=== PATIENT | female | born 1950 | race Caucasian/White ===

== ENCOUNTER 2017-11-10 01:29 | Emergency (ER) | payer OTHER, MEDICAID ==
[~2017-11-10] VITALS: Ht 172.7 cm; Wt 62.6 kg
[~2017-11-10 01:29] MED LIST: ALBU2.5V7 INH; ASPI81TA2 PO; CAT.2 PO; CEPH250C PO; COR25 PO; DIPH25CA83 PO; DOCU-144 PO; HYDR-4039 PO; HYDR-4100 PO; LIP40 PO; NEU300 PO; NOR10 PO; ONDA4TAB22 PO; PARO20TA51 PO; PRO40 PO; VITA1TAB25 PO; ZOLP5TAB2 PO; [UNRECOGNIZED DRUG - CODE] PO
[2017-11-10 01:30] VITALS: BP_SYST 140
[2017-11-10] MEDS ORDERED: PHYTONADIONE 10 MG/ML AMP IM ONE (05:45)
[2017-11-10] MEDS ORDERED: traMADol HCL HCL 50 MG TABLET (ULTRAM) PO ONE (05:45)
[2017-11-10 06:33] VITALS: BP_SYST 155
== END 2017-11-10 06:33 | disposition home or self-care (01) ==
LOC: SED 01:29
DX: D68.9 Coagulation defect, unspecified (principal); R51 Headache; J45.909 Unspecified asthma, uncomplicated; K21.9 Gastro-esophageal reflux disease without esophagitis; I12.0 Hypertensive chronic kidney disease with stage 5 chronic kidney disease or end stage renal disease; E11.22 Type 2 diabetes mellitus with diabetic chronic kidney disease; N18.6 End stage renal disease; Z99.2 Dependence on renal dialysis; Z88.0 Allergy status to penicillin; Z88.2 Allergy status to sulfonamides; Z79.82 Long term (current) use of aspirin; Z79.899 Other long term (current) drug therapy
CPT/HCPCS: 96372; 99283; J3430

== ENCOUNTER 2017-11-10 08:01 | Emergency (ER) | payer OTHER, MEDICAID ==
[~2017-11-10] VITALS: Ht 172.7 cm; Wt 62.6 kg
[2017-11-10 08:01] VITALS: BP_SYST 138
[2017-11-10 08:56] LABS: BASOPHILS # (AUTO) 0.1 K/uL (0.0-0.2); BASOPHILS % (AUTO) 0.9 % (0.0-2.0); EOSINOPHILS # (AUTO) 0.9 K/uL (0.0-0.4); EOSINOPHILS % (AUTO) 14.4 % (0.0-4.0); HEMATOCRIT 31.7 % (36-48); HEMOGLOBIN 10.1 g/dL (12.0-16.0); LYMPHOCYTES # (AUTO) 0.7 K/uL (1.0-5.5); LYMPHOCYTES % (AUTO) 11.8 % (20.5-51.5); MEAN CORPUSCULAR HEMOGLOBIN 28 pg (27-31); MEAN CORPUSCULAR HGB CONC 32 % (32-36); MEAN CORPUSCULAR VOLUME 89 fL (79.0-98.0); MONOCYTES # (AUTO) 0.7 K/uL (0.0-1.0); MONOCYTES % (AUTO) 11.8 % (1.7-9.3); NEUTROPHILS # (AUTO) 3.7 K/uL (1.8-7.7); NEUTROPHILS % (AUTO) 61.1 % (40.0-70.0); PLATELET COUNT (AUTO) 214 K/uL (130-430); RED BLOOD CELL COUNT(AUTO) 3.57 MIL/uL (4.2-6.2); RED CELL DISTRIBUTION WIDTH 19.8 % (9.0-15.0); WHITE BLOOD COUNT (AUTO) 6.1 K/uL (4.8-10.8)
[2017-11-10 09:05] LABS: CALCIUM 8.8 mg/dL (8.4-11.0); CREATININE 4.59 mg/dL (0.55-1.30); POTASSIUM 4.6 mmol/L (3.5-5.1)
[2017-11-10 09:10] LABS: ALBUMIN 2.6 g/dL (3.4-4.8); TOTAL BILIRUBIN 0.3 mg/dL (0.0-1.0)
[2017-11-10 09:11] LABS: PROTHROMBIN TIME 10.4 SECS (9.5-12.5)
[2017-11-10 11:30] VITALS: BP_SYST 140
== END 2017-11-10 11:30 | disposition home or self-care (01) ==
LOC: SED 08:01
DX: T82.838A Hemorrhage due to vascular prosthetic devices, implants and grafts, initial encounter (principal); I12.0 Hypertensive chronic kidney disease with stage 5 chronic kidney disease or end stage renal disease; E11.22 Type 2 diabetes mellitus with diabetic chronic kidney disease; N18.6 End stage renal disease; J44.9 Chronic obstructive pulmonary disease, unspecified; F17.200 Nicotine dependence, unspecified, uncomplicated; K21.9 Gastro-esophageal reflux disease without esophagitis; Z99.2 Dependence on renal dialysis; Z88.0 Allergy status to penicillin; Z88.2 Allergy status to sulfonamides; Z79.82 Long term (current) use of aspirin; Z79.899 Other long term (current) drug therapy; Z98.890 Other specified postprocedural states
CPT/HCPCS: 36415; 80053; 85025; 85610-TC; 85730-TC; 99284

== ENCOUNTER 2017-11-28 09:19 | Emergency (ER) | payer OTHER, MEDICAID ==
[~2017-11-28] VITALS: Ht 172.7 cm; Wt 62.6 kg
[2017-11-28 09:19] VITALS: BP_SYST 160
[2017-11-28 10:54] VITALS: BP_SYST 188
== END 2017-11-28 10:54 | disposition home or self-care (01) ==
LOC: SED 09:19
DX: S41.132A Puncture wound without foreign body of left upper arm, initial encounter (principal); J44.9 Chronic obstructive pulmonary disease, unspecified; K21.9 Gastro-esophageal reflux disease without esophagitis; F17.210 Nicotine dependence, cigarettes, uncomplicated; I12.9 Hypertensive chronic kidney disease with stage 1 through stage 4 chronic kidney disease, or unspecified chronic kidney disease; E11.22 Type 2 diabetes mellitus with diabetic chronic kidney disease; N18.9 Chronic kidney disease, unspecified; Z99.2 Dependence on renal dialysis; Z86.79 Personal history of other diseases of the circulatory system; Z88.2 Allergy status to sulfonamides; Z88.0 Allergy status to penicillin; Z79.82 Long term (current) use of aspirin; X58.XXXA Exposure to other specified factors, initial encounter; Y93.89 Activity, other specified; Y92.89 Other specified places as the place of occurrence of the external cause; Y99.8 Other external cause status
CPT/HCPCS: 99283; J7030

== ENCOUNTER 2018-03-16 13:44 | Inpatient (IN) | payer OTHER, MEDICAID ==
[~2018-03-16] VITALS: Ht 172.7 cm; Wt 61.7 kg
[2018-03-16 13:54] VITALS: BP_SYST 137
[2018-03-16 14:25] LABS: BASOPHILS % (AUTO) 0.6 % (0.0-2.0); EOSINOPHILS # (AUTO) 0.9 K/uL (0.0-0.4); EOSINOPHILS % (AUTO) 11.3 % (0.0-4.0); LYMPHOCYTES % (AUTO) 12.7 % (20.5-51.5); MEAN CORPUSCULAR HEMOGLOBIN 28 pg (27-31); MEAN CORPUSCULAR HGB CONC 32 % (32-36); MEAN CORPUSCULAR VOLUME 87 fL (79.0-98.0); MONOCYTES # (AUTO) 0.6 K/uL (0.0-1.0); MONOCYTES % (AUTO) 7.8 % (1.7-9.3); NEUTROPHILS # (AUTO) 5.5 K/uL (1.8-7.7); PLATELET COUNT (AUTO) 244 K/uL (130-430); RED BLOOD CELL COUNT(AUTO) 2.51 MIL/uL (4.2-6.2); RED CELL DISTRIBUTION WIDTH 21.6 % (9.0-15.0)
[2018-03-16 14:33] LABS: CALCIUM 8.3 mg/dL (8.4-11.0); CREATININE 5.1 mg/dL (0.55-1.30); POTASSIUM 5.1 mmol/L (3.5-5.1)
[2018-03-16 14:36] LABS: HEMATOCRIT 21.9 % (36-48)
[2018-03-16 14:38] LABS: ALBUMIN 2.3 g/dL (3.4-4.8); TOTAL BILIRUBIN 0.4 mg/dL (0.0-1.0)
[2018-03-16 14:58] LABS: INR 1.2 (0.8-1.2); PROTHROMBIN TIME 12.3 SECS (9.5-12.5)
[2018-03-16 15:13] LABS: NEUTROPHILS % (AUTO) 67.6 % (40.0-70.0)
[2018-03-16] MEDS ORDERED: DIPHENHYDRAMINE HCL 25 MG CAPSULE PO ONE (15:45)
[2018-03-16] MEDS ORDERED: methylPREDNISolone SOD SUCC/PF 62.5 MG/ML VIAL IVP ONE (16:15)
[2018-03-16 16:48] VITALS: BP_SYST 172
[2018-03-16] MEDS ORDERED: HYDROcodone/ACETAMIN 10-325 MG TAB PO PRN (19:00)
[2018-03-16] MEDS ORDERED: ALBUTEROL SULFATE 0.083% 2.5 MG/3 ML VIAL.NEB INH PRN (19:00)
[2018-03-16] MEDS ORDERED: ONDANSETRON 4 MG ODT TAB PO PRN (19:00)
[2018-03-16] MEDS ORDERED: MILK OF MAGNESIA 30 ML UDC PO PRN (19:00)
[2018-03-16 19:25] VITALS: BP_SYST 172
[2018-03-16 20:00] VITALS: BP_SYST 172
[2018-03-16] MEDS: ATORVASTATIN 20 MG TABLET PO SCH (22:50)
[2018-03-16] MEDS: CARVEDILOL 25 MG TABLET (COREG) PO SCH (22:51)
[2018-03-16] MEDS: DOCUSATE SODIUM 100 MG CAPSULE PO SCH (22:51)
[2018-03-16] MEDS: hydrALAZINE HCL 25 MG TABLET PO SCH (22:52)
[2018-03-16] MEDS: GABAPENTIN 300 MG CAPSULE PO SCH (22:53)
[2018-03-16] MEDS: INSULIN REGULAR, HUMAN 100 UNITS/ML, 10 ML VIAL (novoLIN R) SUBCUT PRN (23:00)
[2018-03-17] MEDS: ZOLPIDEM TARTRATE 5 MG TABLET PO PRN (03:00)
[2018-03-17] MEDS: cloNIDine HCL 0.2 MG TABLET PO PRN ×2 (03:00→23:43)
[2018-03-17] MEDS: DIPHENHYDRAMINE INJ 50 MG/ML VIAL IVP PRN ×2 (03:01→14:34)
[2018-03-17 03:12] VITALS: BP_SYST 181
[2018-03-17] MEDS: INSULIN REGULAR, HUMAN 100 UNITS/ML, 10 ML VIAL (novoLIN R) SUBCUT PRN ×4 (06:14→21:20)
[2018-03-17 07:37] LABS: EOSINOPHILS % (AUTO) 0.1 % (0.0-4.0); HEMATOCRIT 29.2 % (36-48); HEMOGLOBIN 9.5 g/dL (12.0-16.0); LYMPHOCYTES # (AUTO) 0.4 K/uL (1.0-5.5); LYMPHOCYTES % (AUTO) 10.6 % (20.5-51.5); MEAN CORPUSCULAR HEMOGLOBIN 28 pg (27-31); MEAN CORPUSCULAR HGB CONC 33 % (32-36); MEAN CORPUSCULAR VOLUME 87 fL (79.0-98.0); MONOCYTES # (AUTO) 0.1 K/uL (0.0-1.0); MONOCYTES % (AUTO) 3.3 % (1.7-9.3); NEUTROPHILS # (AUTO) 3.5 K/uL (1.8-7.7); PLATELET COUNT (AUTO) 203 K/uL (130-430); RED BLOOD CELL COUNT(AUTO) 3.37 MIL/uL (4.2-6.2); RED CELL DISTRIBUTION WIDTH 18.2 % (9.0-15.0)
[2018-03-17 08:01] LABS: CALCIUM 8.1 mg/dL (8.4-11.0); CREATININE 5.69 mg/dL (0.55-1.30); POTASSIUM 5.7 mmol/L (3.5-5.1)
[2018-03-17 08:26] LABS: TOTAL IRON BIND. CAPACITY 153 ug/dL (250-450)
[2018-03-17] MEDS: DOCUSATE SODIUM 100 MG CAPSULE PO SCH ×2 (09:00→21:00)
[2018-03-17] MEDS: CARVEDILOL 25 MG TABLET (COREG) PO SCH ×2 (09:00→21:26)
[2018-03-17] MEDS: PARoxetine HCL 20 MG TABLET PO SCH (09:00)
[2018-03-17] MEDS: ASPIRIN 81 MG TAB.CHEW PO SCH (09:00)
[2018-03-17] MEDS: VITAMIN B COMPLEX WITH C TAB/CAP PO SCH (09:00)
[2018-03-17] MEDS: amLODIPine BESYLATE 10 MG TABLET PO SCH (09:00)
[2018-03-17] MEDS: hydrALAZINE HCL 25 MG TABLET PO SCH ×3 (09:00→21:25)
[2018-03-17] MEDS: PANTOPRAZOLE SODIUM 40 MG TAB PO SCH (09:00)
[2018-03-17 09:24] VITALS: BP_SYST 171
[2018-03-17] MEDS ORDERED: TUBERCULIN,PURIF.PROT.DERIV. 0.1 ML SYR ID ONE (13:00)
[2018-03-17 14:39] VITALS: BP_SYST 171
[2018-03-17] MEDS ORDERED: EPOETIN ALFA 10,000 UNITS/ML VIAL SUBCUT SCH (17:00)
[2018-03-17 17:06] VITALS: BP_SYST 177
[2018-03-17] MEDS ORDERED: MILK OF MAGNESIA 30 ML UDC PO PRN (19:45)
[2018-03-17 19:55] VITALS: BP_SYST 178
[2018-03-17] MEDS: ATORVASTATIN 20 MG TABLET PO SCH (21:25)
[2018-03-17] MEDS: GABAPENTIN 300 MG CAPSULE PO SCH (21:26)
[2018-03-17 23:40] VITALS: BP_SYST 171
[2018-03-18 00:23] VITALS: BP_SYST 171
[2018-03-18] MEDS: DIPHENHYDRAMINE INJ 50 MG/ML VIAL IVP PRN ×2 (01:36→14:21)
[2018-03-18] MEDS: ZOLPIDEM TARTRATE 5 MG TABLET PO PRN (01:36)
[2018-03-18] MEDS: cloNIDine HCL 0.2 MG TABLET PO PRN ×2 (06:46→13:37)
[2018-03-18 06:47] LABS: HEMATOCRIT 28.1 % (36-48); HEMOGLOBIN 9.2 g/dL (12.0-16.0); MEAN CORPUSCULAR HEMOGLOBIN 28 pg (27-31); MEAN CORPUSCULAR HGB CONC 33 % (32-36); MEAN CORPUSCULAR VOLUME 86 fL (79.0-98.0); PLATELET COUNT (AUTO) 219 K/uL (130-430); RED BLOOD CELL COUNT(AUTO) 3.26 MIL/uL (4.2-6.2); RED CELL DISTRIBUTION WIDTH 18.7 % (9.0-15.0); WHITE BLOOD COUNT (AUTO) 7.3 K/uL (4.8-10.8)
[2018-03-18] MEDS: INSULIN REGULAR, HUMAN 100 UNITS/ML, 10 ML VIAL (novoLIN R) SUBCUT PRN ×2 (06:48→11:30)
[2018-03-18 06:49] VITALS: BP_SYST 163
[2018-03-18 07:09] LABS: ALBUMIN 2.2 g/dL (3.4-4.8); CALCIUM 7.5 mg/dL (8.4-11.0); CREATININE 4.86 mg/dL (0.55-1.30); POTASSIUM 4.7 mmol/L (3.5-5.1); TOTAL BILIRUBIN 0.4 mg/dL (0.0-1.0)
[2018-03-18 07:48] LABS: TOTAL IRON BIND. CAPACITY 164 ug/dL (250-450)
[2018-03-18] MEDS: hydrALAZINE HCL 25 MG TABLET PO SCH ×2 (08:10→14:21)
[2018-03-18] MEDS: ASPIRIN 81 MG TAB.CHEW PO SCH (08:11)
[2018-03-18] MEDS: PARoxetine HCL 20 MG TABLET PO SCH (08:11)
[2018-03-18] MEDS: PANTOPRAZOLE SODIUM 40 MG TAB PO SCH (08:11)
[2018-03-18] MEDS: DOCUSATE SODIUM 100 MG CAPSULE PO SCH (08:11)
[2018-03-18] MEDS: CARVEDILOL 25 MG TABLET (COREG) PO SCH (08:11)
[2018-03-18] MEDS: amLODIPine BESYLATE 10 MG TABLET PO SCH (08:12)
[2018-03-18] MEDS: VITAMIN B COMPLEX WITH C TAB/CAP PO SCH (08:12)
[2018-03-18 08:21] VITALS: BP_SYST 168
[2018-03-18] MEDS ORDERED: buPROPion HCL 100 MG TABLET PO SCH (09:00)
[2018-03-18 12:10] LABS: FOLATE (FOLIC ACID) 3.7 ng/mL (>3.0)
[2018-03-18 12:14] VITALS: BP_SYST 163
[2018-03-18 13:44] VITALS: BP_SYST 162
[2018-03-19 10:22] LABS: HEPATITIS A AB, IgM Negative (Negative); HEPATITIS B CORE AB, IgM Negative (Negative); HEPATITIS B SURFACE AG Negative (Negative)
== END 2018-03-18 15:45 | DRG 811 ==
LOC: SED 13:44 → SMU 16:08
PROVIDERS: ADMIT Family Medicine; ATTEND Family Medicine
PROC: 30233N1 Transfusion of Nonautologous Red Blood Cells into Peripheral Vein, Percutaneous Approach (ICD-10-PCS; principal; 2018-03-16)
PROC: 5A1D70Z Performance of Urinary Filtration, Intermittent, Less than 6 Hours Per Day (ICD-10-PCS; 2018-03-17)
DX: D64.9 Anemia, unspecified (principal); E43 Unspecified severe protein-calorie malnutrition; N18.6 End stage renal disease; I12.0 Hypertensive chronic kidney disease with stage 5 chronic kidney disease or end stage renal disease; E87.1 Hypo-osmolality and hyponatremia; L29.9 Pruritus, unspecified; E11.51 Type 2 diabetes mellitus with diabetic peripheral angiopathy without gangrene; E11.22 Type 2 diabetes mellitus with diabetic chronic kidney disease; J44.9 Chronic obstructive pulmonary disease, unspecified; K21.9 Gastro-esophageal reflux disease without esophagitis; F17.210 Nicotine dependence, cigarettes, uncomplicated; R58 Hemorrhage, not elsewhere classified; S51.812A Laceration without foreign body of left forearm, initial encounter; S51.811A Laceration without foreign body of right forearm, initial encounter; X58.XXXA Exposure to other specified factors, initial encounter; Z99.2 Dependence on renal dialysis; Z88.0 Allergy status to penicillin; Z88.2 Allergy status to sulfonamides; Z79.899 Other long term (current) drug therapy; Z79.82 Long term (current) use of aspirin; Z90.710 Acquired absence of both cervix and uterus; Z89.511 Acquired absence of right leg below knee; Y93.89 Activity, other specified; Y92.89 Other specified places as the place of occurrence of the external cause; Y99.8 Other external cause status; Z89.512 Acquired absence of left leg below knee; Z68.20 Body mass index [BMI] 20.0-20.9, adult
CPT/HCPCS: 36415; 80048; 80053; 80074; 82607; 82728; 82746; 82962; 83540-TC; 83550-TC; 83970; 85025; 85610-TC; 85730-TC; 86580; 86886; 86900; 86901; 86920; 87081; 90935; 96374; 97110-GP; 99285; J0885; J1200; J1815; J2930; J7050; P9021; Q0163

== ENCOUNTER 2018-03-22 03:52 | Emergency (ER) | payer OTHER, MEDICAID ==
[~2018-03-22] VITALS: Ht 172.7 cm; Wt 62.6 kg
[2018-03-22 04:07] VITALS: BP_SYST 198
[2018-03-22 07:41] VITALS: BP_SYST 145
== END 2018-03-22 07:41 | disposition home or self-care (01) ==
LOC: SED 03:52
DX: S41.101D Unspecified open wound of right upper arm, subsequent encounter (principal); I12.0 Hypertensive chronic kidney disease with stage 5 chronic kidney disease or end stage renal disease; E11.22 Type 2 diabetes mellitus with diabetic chronic kidney disease; N18.6 End stage renal disease; E11.40 Type 2 diabetes mellitus with diabetic neuropathy, unspecified; F41.9 Anxiety disorder, unspecified; F17.200 Nicotine dependence, unspecified, uncomplicated; Z99.2 Dependence on renal dialysis; Z88.0 Allergy status to penicillin; Z88.2 Allergy status to sulfonamides; Z89.511 Acquired absence of right leg below knee; X58.XXXD Exposure to other specified factors, subsequent encounter
CPT/HCPCS: 99283

== ENCOUNTER 2018-04-02 14:57 | Inpatient (IN) | payer OTHER, MEDICAID ==
[~2018-04-02] VITALS: Ht 172.7 cm; Wt 70.8 kg
--- NOTE | 2018-04-02 20:12 | NUR ---
Admission Note Received patient as a direct admit with diagnosis of ANEMIA. Patient is awake, alert, and oriented x4. Initial Plan of Care discussed-patient verbalized understanding. Oriented to room, call light, pain management and safety. Bed is down, locked, side rails up x2, call light within reach. Bed alarm on. Will continue to monitor.
[2018-04-02] MEDS ORDERED: ZOLPIDEM TARTRATE 5 MG TABLET PO SCH (20:15)
[2018-04-02] MEDS ORDERED: ONDANSETRON 4 MG ODT TAB PO SCH (20:15)
[2018-04-02] MEDS ORDERED: ACETAMINOPHEN 325 MG TABLET PO PRN (20:30)
[2018-04-02] MEDS ORDERED: INSULIN REGULAR, HUMAN 100 UNITS/ML, 10 ML VIAL (novoLIN R) SUBCUT PRN (20:30)
[2018-04-02] MEDS ORDERED: HYDROcodone/ACETAMIN 5-325 MG TAB (NORCO/ VICODIN) PO SCH (20:30)
[2018-04-02] MEDS ORDERED: cloNIDine HCL 0.2 MG TABLET PO PRN (20:30)
[2018-04-02] MEDS ORDERED: POLY15DR56 OP (20:40)
[2018-04-02] MEDS ORDERED: CETI10CA PO (20:40)
[2018-04-02] MEDS ORDERED: ACET-2165 PO (20:40)
[2018-04-02] MEDS ORDERED: HYDR-1189 PO (20:40)
[2018-04-02] MEDS ORDERED: RIVA10TA PO (20:40)
[2018-04-02] MEDS ORDERED: FERR210T PO (20:40)
[2018-04-02] MEDS ORDERED: LevALBUTEROL HCL 1.25 MG/0.5 ML *CONC.* VIAL.NEB (XOPENEX CONC.) INH PRN (20:45)
[2018-04-02 20:48] VITALS: BP_SYST 167
[2018-04-02] MEDS ORDERED: NON-FORMULARY MEDICATION (Ferric Citrate 210 MG) PO SCH (21:00)
[2018-04-02] MEDS: TEARS ARTIFICIAL 15 ML DROPS OP SCH (21:00)
[2018-04-02] MEDS ORDERED: LORATADINE 10 MG TABLET PO SCH (21:00)
[2018-04-02] MEDS ORDERED: ATORVASTATIN 20 MG TABLET PO SCH (21:00)
[2018-04-02] MEDS: buPROPion HCL 100 MG TABLET PO SCH (21:00)
--- NOTE | 2018-04-02 22:31 | NUR ---
Rounds/Verified with lab order was in correctly and still waiting on blood Patient is eating in bed. No s/s of distress. Denies needs. Called lab multiple times to verify order, lab stated it was correct and that it still was not ready at this time. Bed is down, locked, side rails up x2, call light within reach. bed alarm on. Will continue to monitor.
[2018-04-02] MEDS: hydrALAZINE HCL 25 MG TABLET PO SCH (22:53)
[2018-04-02] MEDS: CARVEDILOL 25 MG TABLET (COREG) PO SCH (22:54)
[2018-04-02] MEDS: GABAPENTIN 300 MG CAPSULE PO SCH (22:55)
[2018-04-03] VITALS (7 sets, daily range): BP systolic 134–181
--- NOTE | 2018-04-03 00:42 | NUR ---
Rounds/Still waiting on blood Patient is resting in bed at this time. No s/s of respiratory distress. Breathing is even and unlabored. Called lab multiple times for blood, blood is not ready. Bed is down, locked, side rails up x2, call light within reach, bed alarm on. Will continue to monitor.
--- NOTE | 2018-04-03 01:25 | NUR ---
Blood transfusion Blood transfusion started at this time. Patient instructed on adverse reactions and to notify nurse if patient experiences any symptoms, patient verbalizes understanding. No adverse reactions noted. Bed is down, locked, side rails up x2, call light within reach, bed alarm on. Will continue to monitor.
--- NOTE | 2018-04-03 02:37 | NUR ---
Rounds Patient is resting in bed at this time. Breathing is even and unlabored. Blood is infusing well, no adverse reactions noted. Bed is down, locked, side rails up x2, call light within reach, bed alarm on. Will continue to monitor.
--- NOTE | 2018-04-03 04:32 | NUR ---
Rounds Patient is resting in bed with eyes closed. No s/s of distress noted Blood is infusing well, no adverse reactions noted. Bed is down, locked, side rails up x2, call light within reach, bed alarm on. Will continue to monitor.
--- NOTE | 2018-04-03 04:56 | NUR ---
PAGED I PAGED DR. KRAMER @ [phone] KRAMER @ [phone] SECOND CALL THIS TIME
--- NOTE | 2018-04-03 04:56 | NUR ---
Paged Dr. Jeffers Paged Dr. Jeffers for orders.
--- NOTE | 2018-04-03 05:00 | NUR ---
Blood transfusion completed Blood transfusion completed. No adverse reactions noted throughout transfusion. Bed is down, locked, side rails up x2, call light within reach, bed alarm on. Will continue to monitor.
--- NOTE | 2018-04-03 05:26 | NUR ---
Paged Dr. Jeffers Second page to Dr. Jeffers.
--- NOTE | 2018-04-03 05:36 | NUR ---
PAGED I PAGED DR. KRAMER @ [phone] I SPOKE WITH STEFFANIE KRAMER CALLED BACK @ [phone]
--- NOTE | 2018-04-03 05:44 | NUR ---
Spoke to Dr. Jeffers Spoke to Dr. Jeffers and notified MD of patients BP of 171/57. MD ordered to give clonidine 0.3mg now once and then to continue to second transfusion afterwards. MD notified of patient's oxygen level decreasing, order received for oxygen via nasal cannula as needed. Orders noted and carried out.
[2018-04-03] MEDS ORDERED: cloNIDine HCL 0.1 MG TABLET PO ONE (05:45)
--- NOTE | 2018-04-03 06:04 | NUR ---
Went to lab Went to lab. Unable to retrieve blood from them at this time due to system issue. Lab will call nurse when it is fixed and ready to be picked up.
[2018-04-03] MEDS: LevALBUTEROL HCL 1.25 MG/0.5 ML *CONC.* VIAL.NEB (XOPENEX CONC.) INH SCH ×2 (07:31→15:00)
[2018-04-03 07:52] LABS: BASOPHILS % (AUTO) 0.4 % (0.0-2.0); EOSINOPHILS # (AUTO) 0.3 K/uL (0.0-0.4); EOSINOPHILS % (AUTO) 3.6 % (0.0-4.0); HEMATOCRIT 25.1 % (36-48); HEMOGLOBIN 8.1 g/dL (12.0-16.0); LYMPHOCYTES # (AUTO) 1.6 K/uL (1.0-5.5); LYMPHOCYTES % (AUTO) 20.3 % (20.5-51.5); MEAN CORPUSCULAR HEMOGLOBIN 29 pg (27-31); MEAN CORPUSCULAR HGB CONC 32 % (32-36); MEAN CORPUSCULAR VOLUME 89 fL (79.0-98.0); MONOCYTES # (AUTO) 0.9 K/uL (0.0-1.0); MONOCYTES % (AUTO) 11.2 % (1.7-9.3); NEUTROPHILS # (AUTO) 4.9 K/uL (1.8-7.7); NEUTROPHILS % (AUTO) 64.5 % (40.0-70.0); PLATELET COUNT (AUTO) 199 K/uL (130-430); RED BLOOD CELL COUNT(AUTO) 2.83 MIL/uL (4.2-6.2); RED CELL DISTRIBUTION WIDTH 19.2 % (9.0-15.0); WHITE BLOOD COUNT (AUTO) 7.7 K/uL (4.8-10.8)
--- NOTE | 2018-04-03 07:59 | NUR ---
Closing note Patient is resting quietly in bed with eyes closed. No s/s of respiratory distress noted. IV is saline locked. All needs met and anticipated by noc shift nurse. Bed is down, locked, side rails up x2, call light within reach. Bed alarm on. Endorsed care to day shift nurse.
--- NOTE | 2018-04-03 08:00 | NUR ---
RN OPENING NOTE PATIENT RESTING ON BED, ALERT ORIENTED X 4, PATIENT DENIES PAIN OR DISCOMFORT PATIENT WAS ASSESSED, VITAL SIGNS SHOWED HER BLOOD PRESSURE IS HIGH, WILL GIVE THE PATIENT HER BLOOD PRESSURE MEDICATION. BED WAS PUT AT LOW POSITION AND CALL LIGHT WITHIN REACH, PATIENT WAS ENCOURAGED TO CALL. WILL CONTINUE TO MONITOR.
[2018-04-03 08:07] LABS: CALCIUM 8.2 mg/dL (8.4-11.0); CREATININE 3.32 mg/dL (0.55-1.30); POTASSIUM 4.3 mmol/L (3.5-5.1)
[2018-04-03] MEDS ORDERED: PARoxetine HCL 20 MG TABLET PO SCH (09:00)
[2018-04-03] MEDS ORDERED: RIVAROXABAN 10 MG TABLET PO SCH (09:00)
[2018-04-03] MEDS ORDERED: PANTOPRAZOLE SODIUM 40 MG TAB PO SCH (09:00)
[2018-04-03] MEDS ORDERED: amLODIPine BESYLATE 10 MG TABLET PO SCH (09:00)
--- NOTE | 2018-04-03 09:12 | NUR ---
Nutrition Update Blaine Scale 18 noted. Pt admitted for anemia. Diet: regular BMI: 23.7 kg/m2 RD to follow per nutrition care standards.
--- NOTE | 2018-04-03 10:00 | NUR ---
RN NOTE PATIENT BLOOD PRESSURE IS DOWN TO 145/66. PATIENT'S DENIES PAIN OR DISCOMFORT, WILL CONTINUE TO MONITOR.
[2018-04-03] MEDS: TEARS ARTIFICIAL 15 ML DROPS OP SCH (10:39)
[2018-04-03] MEDS: CARVEDILOL 25 MG TABLET (COREG) PO SCH (10:40)
[2018-04-03] MEDS: GABAPENTIN 300 MG CAPSULE PO SCH ×2 (10:41→15:13)
[2018-04-03] MEDS: buPROPion HCL 100 MG TABLET PO SCH (10:42)
[2018-04-03] MEDS: hydrALAZINE HCL 25 MG TABLET PO SCH ×2 (10:43→15:13)
--- NOTE | 2018-04-03 12:27 | NUR ---
BT INITIATION: Consent signed per patient agreeing to administration of blood. Blood has been type and crossmatched. Blood sent from blood bank. Information on unit of blood checked against patient wristband at bedside by two nurses. All information matches. Patient or responsible libertarian informed of potential complications associated with blood transfusion. Informed of possible transfusion reaction symptoms. Aware of need to notify nurse at once of itching, shortness of breath, flushing, feeling of impending doom, or other symptoms not previously present. Vital signs taken within 5 minutes prior to initiation of transfusion. RN will remain with patient for first 15 minutes of transfusion at which time vital signs will be re-assessed.
--- NOTE | 2018-04-03 14:25 | NUR ---
RN NOTE PATIENT STILL INFUSING BLOOD, ASYMPTOMATIC. NO REACTION TO THE BLOOD TRANSFUSION. PATIENT WAS SERVED HER LUNCH AND PATIENT DENIES PAIN , DENIES SHORTNESS OF BREATH, CALL LIGHT WITHIN REACH AND FREQUENT ROUNDING ON THE PATIENT TO PREVENT FALL AND MONITOR THE TRANSFUSION.
--- NOTE | 2018-04-03 16:30 | NUR ---
RN NOTE PATIENT FINISHED WITH HER BLOOD TRANSFUSION, PATIENT BLOOD SUGAR WAS MEASURED TO BE 113 MG/DL. PATIENT GOT NO COVERAGE. DR. KRAMER ORDER TRANSFER THE PATIENT BACK TO [facility], WILL CALL FOR A REPORT. PATIENT WILL BE TRANSPORTED BY AMBULANCE. WILL FOLLOW UP.
--- NOTE | 2018-04-03 16:42 | NUR ---
Paper Baling Machine Operator DCP obtained transfer to [facility] order. DCP met with pt at bedside to discuss DC plan. DCP informed pt who agree to transfer back to [facility]. Choice Form Completed and filed into pt's chart. CLAUDETTEP contacted [facility] to follow up with pt's bed hold. CLAUEDTTEP spoke with Tesha who confirmed pt's bed 113A is still on hold for pt. DCP informed her pt has a DC order to return to facility. DCP contacted [facility] to arrange transportation with pickling operator time 7pm. DCP informed SOWMYA Joshua and pt's nurse Seymour.
--- NOTE | 2018-04-03 18:37 | NUR ---
RN CLOSING NOTE PATIENT WILL BE TRANSFERED TO [facility], REPORT WAS GIVEN TO SHERIE BOWERS FROM [facility]. FAMILY MEMBER MAX BOWERS WAS CONTACTED TWICE, AND LEFT A MESSAGE ON THE ANSWER MACHINE. FIELD CROP FARMWORKER TOLD ME SHE WILL CONTACT AND INFORM THE FAMILY MEMBER TOO. PATIENT WILL BE TRANSFERED BY AMBULANCE BACK TO [facility]. WILL SIGN OFF PATIENT CARE.
== END 2018-04-03 19:17 | DRG 811 ==
LOC: SMU 20:00
PROVIDERS: ADMIT Family Medicine; ATTEND Family Medicine
PROC: 30233N1 Transfusion of Nonautologous Red Blood Cells into Peripheral Vein, Percutaneous Approach (ICD-10-PCS; principal; 2018-04-03)
DX: D64.9 Anemia, unspecified (principal); N18.6 End stage renal disease; I12.0 Hypertensive chronic kidney disease with stage 5 chronic kidney disease or end stage renal disease; E11.22 Type 2 diabetes mellitus with diabetic chronic kidney disease; E11.51 Type 2 diabetes mellitus with diabetic peripheral angiopathy without gangrene; F17.200 Nicotine dependence, unspecified, uncomplicated; J44.9 Chronic obstructive pulmonary disease, unspecified; Z99.2 Dependence on renal dialysis; Z79.82 Long term (current) use of aspirin; Z79.899 Other long term (current) drug therapy; Z88.0 Allergy status to penicillin; Z88.2 Allergy status to sulfonamides; Z79.4 Long term (current) use of insulin; Z89.519 Acquired absence of unspecified leg below knee
CPT/HCPCS: 36415; 80048; 82962; 85025; 86886; 86900; 86901; 86920; 87081; J7030; J7050; J7612; P9021

== ENCOUNTER 2018-05-29 11:58 | Inpatient (IN) | payer OTHER, MEDICAID ==
[~2018-05-29] VITALS: Ht 172.7 cm; Wt 59.0 kg
[2018-05-29] VITALS (8 sets, daily range): BP systolic 118–154
[~2018-05-29 11:58] MED LIST changes: +ACET-2165 PO; +ASPI-1155 PO; -ASPI81TA2 PO; -CEPH250C PO; +CETI10CA PO; +FERR210T PO; +HYDR-1189 PO; +PARO-63 PO; -PARO20TA51 PO; +POLY15DR56 OP
--- NOTE | 2018-05-29 11:58 | NUR ---
Placed in room 03. Placed on secured entrance monitor, blood pressure machine and pulse oximeter. To gown for exam. Side rails up.
--- NOTE | 2018-05-29 12:05 | NUR ---
Oxygen applied at 2 L per minute per NC. O2 sats improved to 95% by pulse oximetry.
--- NOTE | 2018-05-29 12:33 | NUR ---
ER at bedside examining patient.
[2018-05-29] MEDS ORDERED: EPOE20005 SQ (12:35)
[2018-05-29] MEDS ORDERED: BISA-79 PO (12:35)
[2018-05-29] MEDS ORDERED: DEXT30DR6 EACH EYE (12:35)
[2018-05-29] MEDS ORDERED: FAMO1TAB29 PO (12:35)
--- NOTE | 2018-05-29 12:35 | NUR ---
Blood drawn and sent to labs including blood culture, type/screen, and lactic acid
--- NOTE | 2018-05-29 12:36 | NUR ---
Medication reconciliation completed with information provided by [facility]. Any prior medication reconciliation on file was reviewed and corrected.
--- NOTE | 2018-05-29 12:50 | NUR ---
Pt s/p dialysis yesterday and c/o tiredness for a while. Pt requested blood work and results came back yesterday and was informed that her RBC's are low. Pallor noted, SPO2 99% on 2 LPM/NC. Denies c/o pain.
--- NOTE | 2018-05-29 12:55 | NUR ---
Pt sitting up eating lunch independently
--- NOTE | 2018-05-29 13:08 | NUR ---
Note undone in EDM - 05/29/18 at 1312 by [email or web address] Patient given written and verbal discharge instructions and verbalizes understanding. ER discussed with patient the results and treatment provided. Patient in stable condition. ID arm band removed. Rx of Tramadol and Naproxen given. Patient educated on pain management and to follow up with PMD. Pain Scale 3/10 tolerable for patient . Opportunity for questions provided and answered. Medication side effect fact sheet provided.
--- NOTE | 2018-05-29 13:11 | NUR ---
X-ray at bedside.
[2018-05-29 13:16] LABS: BASOPHILS % (AUTO) 0.6 % (0.0-2.0); EOSINOPHILS # (AUTO) 0.2 K/uL (0.0-0.4); EOSINOPHILS % (AUTO) 4.1 % (0.0-4.0); LYMPHOCYTES % (AUTO) 16.3 % (20.5-51.5); MEAN CORPUSCULAR HEMOGLOBIN 30 pg (27-31); MEAN CORPUSCULAR HGB CONC 32 % (32-36); MEAN CORPUSCULAR VOLUME 96 fL (79.0-98.0); MONOCYTES # (AUTO) 0.7 K/uL (0.0-1.0); NEUTROPHILS # (AUTO) 4.2 K/uL (1.8-7.7); PLATELET COUNT (AUTO) 267 K/uL (130-430); RED CELL DISTRIBUTION WIDTH 22.3 % (9.0-15.0); WHITE BLOOD COUNT (AUTO) 6.1 K/uL (4.8-10.8)
--- NOTE | 2018-05-29 13:18 | NUR ---
Note leana in ED - 05/29/18 at 1455 by SUSIE Patient will be admitted to care of Dr. Jeffers. Admitted to ICU unit. Will go to room 8. Belongings list completed. Summary report printed. Bedside report given to receiving RN.
[2018-05-29 13:21] LABS: HEMATOCRIT 15.3 % (36-48); HEMOGLOBIN 4.8 g/dL (12.0-16.0); RED BLOOD CELL COUNT(AUTO) 1.59 MIL/uL (4.2-6.2)
[2018-05-29 13:24] LABS: CALCIUM 7.9 mg/dL (8.4-11.0); CREATININE 3.63 mg/dL (0.55-1.30); POTASSIUM 4.6 mmol/L (3.5-5.1)
[2018-05-29 13:28] LABS: INR 1.1 (0.8-1.2); PROTHROMBIN TIME 10.7 SECS (9.5-12.5)
[2018-05-29 13:29] LABS: ALBUMIN 2.1 g/dL (3.4-4.8); TOTAL BILIRUBIN 0.2 mg/dL (0.0-1.0)
--- NOTE | 2018-05-29 13:30 | NUR ---
No needs verbalized at this time. VSS.
--- NOTE | 2018-05-29 14:18 | NUR ---
Patient will be admitted to care of Dr. Jeffers. Admitted to ICU unit. Will go to room 8. Belongings list completed. Summary report printed. Bedside report given to receiving RN.
--- NOTE | 2018-05-29 14:40 | NUR ---
Dr. Aury Jeffers at bedside for evaluation of patient, will follow up regarding orders.
[2018-05-29] MEDS ORDERED: cloNIDine HCL 0.2 MG TABLET PO PRN (15:00)
[2018-05-29] MEDS ORDERED: BISACODYL 5 MG TABLET.DR (DULCOLAX) PO SCH (15:00)
[2018-05-29] MEDS ORDERED: HYDROcodone/ACETAMIN 10-325 MG TAB PO PRN (15:00)
[2018-05-29] MEDS ORDERED: DIPHENHYDRAMINE HCL 25 MG CAPSULE PO SCH (15:00)
[2018-05-29] MEDS ORDERED: ZOLPIDEM TARTRATE 5 MG TABLET PO SCH (15:00)
[2018-05-29] MEDS ORDERED: HYDROcodone/ACETAMIN 5-325 MG TAB (NORCO/ VICODIN) PO SCH (15:00)
[2018-05-29] MEDS: hydrALAZINE HCL 25 MG TABLET PO SCH ×2 (15:00→20:38)
[2018-05-29] MEDS ORDERED: LevALBUTEROL HCL 1.25 MG/0.5 ML *CONC.* VIAL.NEB (XOPENEX CONC.) INH PRN (15:15)
[2018-05-29] MEDS ORDERED: NICOTINE 21 MG/24 HR PATCH.TD24 TD ONE (15:15)
[2018-05-29] MEDS ORDERED: INSULIN REGULAR, HUMAN 100 UNITS/ML, 10 ML VIAL (novoLIN R) SUBCUT PRN (15:15)
[2018-05-29] MEDS ORDERED: ONDANSETRON HCL 4 MG/2 ML VIAL IVP PRN (15:15)
--- NOTE | 2018-05-29 15:37 | NUR ---
Refusal Patient refused Hydralazine, states she took it this morning. Noted in eMAR.
--- NOTE | 2018-05-29 15:42 | NUR ---
Snack tray Snack tray ordered from dietary, patient sat up for meal. Patient resting comfortably. Needs are met at this time.
--- NOTE | 2018-05-29 16:16 | NUR ---
Called Dr. Thomason with a consult, spoke with Samantha from doctors office
[2018-05-29] MEDS: GABAPENTIN 300 MG CAPSULE PO SCH ×2 (16:18→20:37)
[2018-05-29] MEDS: 0.45% NACL 1,000 ML IV SCH (16:18)
[2018-05-29] MEDS: ACETAMINOPHEN 325 MG TABLET PO PRN (16:19)
--- NOTE | 2018-05-29 16:21 | NUR ---
Called Dr. Simms with a consult, Dr. Hannon land leasing information clerk at this time. Spoke with Analy from doctors office
--- NOTE | 2018-05-29 16:30 | NUR ---
Blood transfusion Blood transfusion started. Vital signs are stable at this time. Blood pressure 130/51; RR 16; 75 HR; and 98.6.
--- NOTE | 2018-05-29 16:45 | NUR ---
15-min after transfusion Patient tolerating transfusion. No evidence of reaction. Vital signs stable at this time.
[2018-05-29] MEDS ORDERED: COMMUNICATION ORDER XX ONE (18:00)
[2018-05-29] MEDS: PANTOPRAZOLE SODIUM 40 MG in NS 50 ML IV SCH ×2 (18:12→21:00)
--- NOTE | 2018-05-29 18:37 | NUR ---
Consent Consents signed for hemodialysis and for EGD.
--- NOTE | 2018-05-29 19:00 | NUR ---
2nd unit PRBC 2nd unit of PRBC hung and verified with ROBINSON Vargas.
--- NOTE | 2018-05-29 19:30 | NUR ---
Initial Notes Received patient resting in bed, awake, alert, oriented. Patient denies any acute distress or pain at this time. Vital signs stable. Breathing is even and unlabored. IVs patent/clean/dry. PRBC transfusing per MD order. H/H to be drawn 1 hour post completion of this unit, and MD notified to inquire if 3rd unit of PRBC is to be transfused, per previous nurse. Patient repositioned for comfort. Needs addressed. Educated patient regarding use of call light for assistance and fall precautions. Will continue to monitor.
[2018-05-29] MEDS: DOCUSATE SODIUM 100 MG CAPSULE PO SCH (20:37)
[2018-05-29] MEDS: PEG 400/HYPROMELLOSE/GLYCERIN 15 ML DROPS OP SCH (20:37)
[2018-05-29] MEDS: ATORVASTATIN 20 MG TABLET PO SCH (20:37)
[2018-05-29] MEDS: CARVEDILOL 25 MG TABLET (COREG) PO SCH (20:39)
[2018-05-29] MEDS ORDERED: PANTOPRAZOLE SODIUM 40 MG/VIAL (PROTONIX) IVP SCH (21:00)
--- NOTE | 2018-05-29 21:00 | NUR ---
BM Patient had large, black, tarry stool. Pericare provided. Stool sample sent to lab for ordered testing.
--- NOTE | 2018-05-29 21:30 | NUR ---
2nd Unit PRBC complete Patient tolerated well, no adverse effects reported/suspected. Lab called to come draw ordered test 1 hour post completion.
[2018-05-29 22:36] LABS: HEMOGLOBIN 6.7 g/dL (12.0-16.0)
--- NOTE | 2018-05-29 22:38 | NUR ---
CALLED PAGED DR KRAMER CALL PAGED OUT FOR CRITICAL LABS SPOKE TO LIZZ
--- NOTE | 2018-05-29 22:50 | NUR ---
Communication S/W Dr. Jeffers regarding patient's latest Hgb. Orders received to transfuse an additional 2 units of PRBC tonight, total 4 units. Will enter and carry out.
[2018-05-29] MEDS: LevALBUTEROL HCL 1.25 MG/0.5 ML *CONC.* VIAL.NEB (XOPENEX CONC.) INH SCH (23:15)
--- NOTE | 2018-05-29 23:15 | NUR ---
3rd Unit PRBC Started. 3rd unit PRBC started. IV site patent/clean/dry, no S/S infection/infiltration noted. Verified unit with Keshav Harris RN.
[2018-05-30] VITALS (16 sets, daily range): BP systolic 109–164
--- NOTE | 2018-05-30 01:00 | NUR ---
Nursing Notes Patient resting in bed with eyes closed. No acute distress noted. Breathing is even and unlabored. IV sites patent/clean/dry. PRBC transfusing, no adverse effects reported/suspected. Call light in hand, fall precautions in place. Will continue to monitor.
[2018-05-30] MEDS: PANTOPRAZOLE SODIUM 40 MG in NS 50 ML IV SCH ×2 (02:00→06:23)
--- NOTE | 2018-05-30 02:25 | NUR ---
3rd Unit PRBC Complete No adverse effects noted/reported. Vital signs stable.
--- NOTE | 2018-05-30 02:50 | NUR ---
4th Unit PRBC Started Vital signs stable. IV site patent/clean/dry, no S/S infection/infiltration noted. Unit verified with Sandra BOWERS.
--- NOTE | 2018-05-30 05:00 | NUR ---
Nursing Notes Patient resting in bed with eyes closed, easily aroused. Patient denies any acute distress or pain at this time. IV sites patent/clean/dry. PRBC transfusing per MD order. Incontinence care and linen change provided. Needs addressed. Call light in hand, fall precautions in place. Will continue to monitor.
--- NOTE | 2018-05-30 05:52 | NUR ---
4th Unit PRBC Complete No adverse effects reported/suspected. Vital signs stable. Will continue to monitor.
--- NOTE | 2018-05-30 06:35 | NUR ---
Closing Notes Patient resting in bed with eyes closed, easily aroused. Patient denies any acute distress or pain when asked. Breathing is even and unlabored. IV sites patent/clean/dry, no S/S infection/infiltration noted. Needs addressed throughout shift. Call light in hand, fall precautions in place. Will continue to monitor for changes and safety, and endorse all patient care/needs to oncoming nurse. Patient has been NPO since midnight for procedure this AM.
[2018-05-30] MEDS ORDERED: fentaNYL CITRATE/PF 100 MCG/2 ML AMP ONE (06:37)
[2018-05-30] MEDS ORDERED: MIDAZOLAM HCL 5 MG/5 ML VIAL ONE ×2 (06:38)
--- NOTE | 2018-05-30 07:20 | NUR ---
DR. GUTIERREZ AT BEDSIDE MD ASSESSMENT FOR SCHEDULED EGD
[2018-05-30] MEDS: LevALBUTEROL HCL 1.25 MG/0.5 ML *CONC.* VIAL.NEB (XOPENEX CONC.) INH SCH ×3 (07:36→23:21)
--- NOTE | 2018-05-30 07:48 | NUR ---
JUVENILE CORRECTIONAL OFFICER PT PRESENTED WITH ANEMIA AND RECEIVED 4 UNITS OF PRBC: CBC PENDING. PT IS AWAKE, ALERT AND ORIENTED X 4, SPEAKS LAO AND IS COOPERATIVE. PT IS CLEAN, DRY, AND DENIES PAIN. VS STABLE ON ROOM AIR ASIDE FROM BP ELEVATION 160/78: DIALYSIS SCHEDULED TODAY. PT HAS BEEN NPO SINCE 0000 DUE TO EGD SCHEDULED THIS MORNING. FALL PRECAUTIONS IN PLACE Addendum: 05/30/18 at 0803 by Paxton Jean RN CORRECTION: PT IS ON 2L O2 THERAPY VIA NC, LUNG SOUNDS CLEAR
[2018-05-30 08:21] LABS: CALCIUM 7.9 mg/dL (8.4-11.0); CREATININE 4.39 mg/dL (0.55-1.30); POTASSIUM 4.9 mmol/L (3.5-5.1)
[2018-05-30 08:23] LABS: BASOPHILS # (AUTO) 0.1 K/uL (0.0-0.2); BASOPHILS % (AUTO) 0.6 % (0.0-2.0); EOSINOPHILS # (AUTO) 0.4 K/uL (0.0-0.4); EOSINOPHILS % (AUTO) 4.2 % (0.0-4.0); HEMATOCRIT 28.3 % (36-48); HEMOGLOBIN 9.2 g/dL (12.0-16.0); LYMPHOCYTES # (AUTO) 0.7 K/uL (1.0-5.5); LYMPHOCYTES % (AUTO) 7.2 % (20.5-51.5); MEAN CORPUSCULAR HEMOGLOBIN 30 pg (27-31); MEAN CORPUSCULAR HGB CONC 32 % (32-36); MEAN CORPUSCULAR VOLUME 93 fL (79.0-98.0); MONOCYTES # (AUTO) 0.9 K/uL (0.0-1.0); MONOCYTES % (AUTO) 9.5 % (1.7-9.3); NEUTROPHILS # (AUTO) 7.1 K/uL (1.8-7.7); NEUTROPHILS % (AUTO) 78.5 % (40.0-70.0); PLATELET COUNT (AUTO) 251 K/uL (130-430); RED BLOOD CELL COUNT(AUTO) 3.03 MIL/uL (4.2-6.2); WHITE BLOOD COUNT (AUTO) 9.2 K/uL (4.8-10.8)
[2018-05-30 08:31] LABS: TOTAL IRON BIND. CAPACITY 161 ug/dL (250-450)
--- NOTE | 2018-05-30 08:42 | NUR ---
EGD PERFORMED AT BEDSIDE BY DR. GUTIERREZ ULCER LOCATED, NON-BLEEDING. BIOPSY OF ULCER COLLECTED.
[2018-05-30 08:44] LABS: PROTHROMBIN TIME 10.5 SECS (9.5-12.5)
[2018-05-30] MEDS ORDERED: MIDAZOLAM HCL 5 MG/5 ML VIAL IVP ONE ×2 (08:44→08:48)
[2018-05-30] MEDS ORDERED: fentaNYL CITRATE/PF 100 MCG/2 ML AMP IVP ONE (08:44)
[2018-05-30] MEDS ORDERED: NICOTINE 21 MG/24 HR PATCH.TD24 TD SCH (09:00)
[2018-05-30] MEDS ORDERED: amLODIPine BESYLATE 10 MG TABLET PO SCH (09:00)
[2018-05-30] MEDS: DOCUSATE SODIUM 100 MG CAPSULE PO SCH ×3 (09:00→21:00)
[2018-05-30] MEDS ORDERED: VITAMIN B COMPLEX WITH C TAB/CAP PO SCH (09:00)
[2018-05-30] MEDS ORDERED: EPOETIN ALFA 10,000 UNITS/ML VIAL SUBCUT SCH ×3 (09:00→17:00)
--- NOTE | 2018-05-30 09:22 | NUR ---
Nutrition Update Blaine Scale 18 noted. Pt admitted for severe anemia. Diet: clear liquid BMI: 19.8 kg/m2 RD to follow per nutrition care standards.
[2018-05-30] MEDS: PANTOPRAZOLE SODIUM 40 MG/VIAL (PROTONIX) IVP SCH ×2 (09:57→21:39)
[2018-05-30] MEDS: GABAPENTIN 300 MG CAPSULE PO SCH ×3 (09:58→21:37)
[2018-05-30] MEDS: hydrALAZINE HCL 25 MG TABLET PO SCH ×3 (09:59→21:39)
[2018-05-30] MEDS: CARVEDILOL 25 MG TABLET (COREG) PO SCH ×2 (10:00→21:38)
[2018-05-30] MEDS: PEG 400/HYPROMELLOSE/GLYCERIN 15 ML DROPS OP SCH ×2 (10:02→21:48)
[2018-05-30] MEDS: 0.45% NACL 1,000 ML IV SCH (11:15)
--- NOTE | 2018-05-30 11:50 | NUR ---
DIALYSIS NURSE AT BEDSIDE
[2018-05-30] MEDS: ACETAMINOPHEN 325 MG TABLET PO PRN (12:12)
[2018-05-30] MEDS ORDERED: DIPHENHYDRAMINE HCL 25 MG CAPSULE PO PRN (13:00)
[2018-05-30] MEDS ORDERED: BISACODYL 5 MG TABLET.DR (DULCOLAX) PO PRN (13:00)
--- NOTE | 2018-05-30 13:27 | NUR ---
TRANS TO TELEMETRY PER DR. KRAMER [facility] CHARGE NURSE DARYA NOTIFIED, CONTINUING CARE UNTIL A TELE BED BECOMES AVAILABLE
--- NOTE | 2018-05-30 14:10 | NUR ---
DR. KRAMER AT BEDSIDE NEW ORDERS RECEIVED
[2018-05-30] MEDS ORDERED: HYDROcodone/ACETAMIN 5-325 MG TAB (NORCO/ VICODIN) PO PRN (14:15)
[2018-05-30 16:57] LABS: EOSINOPHILS # (AUTO) 0.2 K/uL (0.0-0.4); MONOCYTES # (AUTO) 0.8 K/uL (0.0-1.0); RED CELL DISTRIBUTION WIDTH 17.4 % (9.0-15.0)
[2018-05-30 17:03] LABS: HEMATOCRIT 27.4 % (36-48); MEAN CORPUSCULAR HEMOGLOBIN 30 pg (27-31); MEAN CORPUSCULAR VOLUME 94 fL (79.0-98.0); RED BLOOD CELL COUNT(AUTO) 2.93 MIL/uL (4.2-6.2); WHITE BLOOD COUNT (AUTO) 8.6 K/uL (4.8-10.8)
[2018-05-30 17:04] LABS: BASOPHILS % (AUTO) 0.3 % (0.0-2.0); EOSINOPHILS % (AUTO) 2.4 % (0.0-4.0); LYMPHOCYTES # (AUTO) 0.7 K/uL (1.0-5.5); LYMPHOCYTES % (AUTO) 7.8 % (20.5-51.5); MEAN CORPUSCULAR HGB CONC 32 % (32-36); MONOCYTES % (AUTO) 9.6 % (1.7-9.3); NEUTROPHILS # (AUTO) 6.9 K/uL (1.8-7.7); NEUTROPHILS % (AUTO) 79.9 % (40.0-70.0); PLATELET COUNT (AUTO) 232 K/uL (130-430)
[2018-05-30 17:05] LABS: HEMOGLOBIN 8.7 g/dL (12.0-16.0)
--- NOTE | 2018-05-30 17:23 | NUR ---
TRANSFER OF CARE TO TELEMETRY PT TRANSPORTED VIA BED WITH O2 THERAPY AND STORE PROMOTER, ACCOMPANIED BY RN THE ENTIRE TIME PER ACLS GUIDELINES. REPORT ENDORSED TO ROBINSON BOWEN AT BEDSIDE.
--- NOTE | 2018-05-30 17:24 | NUR ---
TRANSFER OF CARE RECEIVED PT IN BED, NO S/S OF DISTRESS OR SOB NOTED, PT HAS NO C/O PAIN AT THIS TIME, PT IN STABLE CONDITION, PT AAOX4, VERBAL, IV CATHETER'S PATENT, NO SIGNS OF INFECTION OR INFILTRATION NOTED. PT ON OXYGEN 2 LITERS VIA NASAL CANNULA, SATURATION OF 96%. NO ACTIVE BLEEDING NOTED. BED AT LOWEST POSITION, CALL LIGHT WITHIN REACH, WILL CONTINUE TO MONITOR PT FOR ANY CHANGES, FALL AND SAFETY PRECAUTIONS IN PLACE. Addendum: 05/30/18 at 1726 by Cindi Russo RN PT HAS AN AV SHUNT ON LEFT UPPER ARM, THRILL AND BRUIT PRESENT.
--- NOTE | 2018-05-30 17:48 | NUR ---
H/H DR NIA MAHER, MADE AWARE OF PATIENT'S RECENT H/H 837 AND 27.4. AWAITING CALL BACK. Addendum: 05/30/18 at 1839 by Cindi Russo RN CALLED BACK AND STATED THAT WAS FINE, NO NEW ORDERS GIVEN.
--- NOTE | 2018-05-30 17:57 | NUR ---
ATTENDING MD DR KRAMER WAS PAGED, RE: EVEN LOWER H/H AFTER TRANSFUSION.
--- NOTE | 2018-05-30 18:40 | NUR ---
CLOSING NOTE PT IN BED, NO S/S OF DISTRESS OR SOB NOTED, PT HAS NO C/O PAIN AT THIS TIME, PT IN STABLE CONDITION, PT AAOX4, VERBAL, IV CATHETER'S PATENT, NO SIGNS OF INFECTION OR INFILTRATION NOTED. PT ON OXYGEN 2 LITERS VIA NASAL CANNULA, SATURATION OF 96%. NO ACTIVE BLEEDING NOTED. BED AT LOWEST POSITION, CALL LIGHT WITHIN REACH, WILL ENDORSE CARE OF PT TO INCOMING NURSE, FALL AND SAFETY PRECAUTIONS IN PLACE.
--- NOTE | 2018-05-30 19:40 | NUR ---
ROUNDS PATIENT IN BED, WATCHING TV, VITALS STABLE, DENIES ANY PAIN AND DISCOMFORT AT THIS TIME. ASSESSMENT DONE AND DOCUMENTED. SEE FLOWSHEET. NEEDS ATTENDED TO. SAFETY AND FALL PRECAUTION MEASURES IN PLACED. BED IN LOW AND LOCKED POSITION. BED ALARM ON. CALL LIGHT PLACED WITHIN REACH.
[2018-05-30] MEDS ORDERED: ZOLPIDEM TARTRATE 5 MG TABLET PO PRN (21:00)
--- NOTE | 2018-05-30 21:05 | NUR ---
MEDICATION DUE MEDICATIONS GIVEN SCHEDULED, TOLERATED WELL. WILL CONTINUE TO MONITOR.
[2018-05-30] MEDS: ATORVASTATIN 20 MG TABLET PO SCH (21:37)
--- NOTE | 2018-05-30 21:56 | NUR ---
[facility].. TALKED TO YAMILETH AT [facility] REGARDING PROCESS OF DISCHARGE FROM [facility]. IF PT HAS TO BE DISCHARGED TO [place] OR CAN PT BE DISCHARGED HOME. YAMILETH SAID PT CAN BE DISCHARGED STRAIGHT HOME IF THAT IS WHAT PT WANTS. AND THEY COULD GET THE BELONGINGS ANYTIME. IF THEY HAVE ANY BELONGINGS THEIR. CHARGE NURSE AND RN AWARE Addendum: 05/31/18 at 0104 by Jeannette Noriega CNA PT JUST WANTED TO BE DISCHARGED BACK TO [facility] WHERE SHE STAYS AND HAVE HER FAMILY PICK HER UP FOR HER DAY PASS.
--- NOTE | 2018-05-31 00:06 | NUR ---
PATIENT RESTING: Patient resting quietly. No acute distress noted. Vital signs within normal range.
--- NOTE | 2018-05-31 02:10 | NUR ---
PATIENT RESTING: Patient resting quietly. No acute distress noted. Vital signs within normal range.
--- NOTE | 2018-05-31 04:41 | NUR ---
transport called [facility] and set up radio interference supervisor for 0800 RN and charge nurse aware.
--- NOTE | 2018-05-31 04:46 | NUR ---
[facility] spoke with Serge at [facility]. to notify him that she will be returning in the morning . and that bead picker is set up for 0800.
--- NOTE | 2018-05-31 05:17 | NUR ---
NOTES CALLED [facility] AND GAVE REPORT TO MARI BOWERS, PATIENT GOING TO [address]ED [address]. PATIENT 'S DAUGHTER MAX INFORMED ALSO OF PATIENT'S DISCHARGE BACK, VP INFORMATICS TIME IS 0800.
[2018-05-31 05:54] VITALS: BP_SYST 126
--- NOTE | 2018-05-31 06:50 | NUR ---
CLOSING NOTES PATIENT AWAKE, VITALS STABLE, DENIES ANY PAIN AND DISCOMFORT AT THIS TIME. ALL NEEDS ATTENDED TO. SAFETY MEASURES MAINTAINED. CALL LIGHT PLACED WITHIN REACH.
[2018-05-31] MEDS: LevALBUTEROL HCL 1.25 MG/0.5 ML *CONC.* VIAL.NEB (XOPENEX CONC.) INH SCH (07:00)
[2018-05-31 08:00] VITALS: BP_SYST 148
[2018-05-31 08:19] LABS: CALCIUM 7.7 mg/dL (8.4-11.0); CREATININE 3.45 mg/dL (0.55-1.30)
--- NOTE | 2018-05-31 08:30 | NUR ---
INITIAL/CLOSING rec patient awake alert and sitting at the edge of the bed. ivl and id band was removed and replaced with a paper id band. no acute distress noted. report given to kieselguhr regenerator operator and was discharged via [facility]. denies pain at this time.
[2018-05-31 08:33] LABS: BASOPHILS # (AUTO) 0.1 K/uL (0.0-0.2); BASOPHILS % (AUTO) 0.7 % (0.0-2.0); EOSINOPHILS # (AUTO) 0.3 K/uL (0.0-0.4); EOSINOPHILS % (AUTO) 3.3 % (0.0-4.0); HEMATOCRIT 26.5 % (36-48); HEMOGLOBIN 8.6 g/dL (12.0-16.0); LYMPHOCYTES # (AUTO) 0.7 K/uL (1.0-5.5); LYMPHOCYTES % (AUTO) 9.5 % (20.5-51.5); MEAN CORPUSCULAR HEMOGLOBIN 31 pg (27-31); MEAN CORPUSCULAR HGB CONC 33 % (32-36); MEAN CORPUSCULAR VOLUME 95 fL (79.0-98.0); MONOCYTES # (AUTO) 0.9 K/uL (0.0-1.0); NEUTROPHILS # (AUTO) 5.6 K/uL (1.8-7.7); NEUTROPHILS % (AUTO) 74.5 % (40.0-70.0); PLATELET COUNT (AUTO) 254 K/uL (130-430); RED CELL DISTRIBUTION WIDTH 17.5 % (9.0-15.0); WHITE BLOOD COUNT (AUTO) 7.6 K/uL (4.8-10.8)
== END 2018-05-31 08:30 | DRG 377 ==
LOC: SED 11:58 → STU 13:30 → SIC 14:18 → STU 05-30 17:10
PROVIDERS: ADMIT Family Medicine; ATTEND Family Medicine
PROC: 30233N1 Transfusion of Nonautologous Red Blood Cells into Peripheral Vein, Percutaneous Approach (ICD-10-PCS; 2018-05-29)
PROC: 0DB68ZX Excision of Stomach, Via Natural or Artificial Opening Endoscopic, Diagnostic (ICD-10-PCS; principal; 2018-05-30 08:30)
DX: K29.71 Gastritis, unspecified, with bleeding (principal); E43 Unspecified severe protein-calorie malnutrition; N18.6 End stage renal disease; I12.0 Hypertensive chronic kidney disease with stage 5 chronic kidney disease or end stage renal disease; Z68.1 Body mass index [BMI] 19.9 or less, adult; K25.4 Chronic or unspecified gastric ulcer with hemorrhage; E11.51 Type 2 diabetes mellitus with diabetic peripheral angiopathy without gangrene; J44.9 Chronic obstructive pulmonary disease, unspecified; D50.0 Iron deficiency anemia secondary to blood loss (chronic); K21.0 Gastro-esophageal reflux disease with esophagitis; E11.22 Type 2 diabetes mellitus with diabetic chronic kidney disease; F17.200 Nicotine dependence, unspecified, uncomplicated; Z89.511 Acquired absence of right leg below knee; Z87.81 Personal history of (healed) traumatic fracture; Z79.82 Long term (current) use of aspirin; Z79.899 Other long term (current) drug therapy; Z88.0 Allergy status to penicillin; Z88.2 Allergy status to sulfonamides
CPT/HCPCS: 36415; 43239; 71045; 80048; 80053; 82272; 82550-TC; 82962; 83540-TC; 83550-TC; 84484; 85018-TC; 85025; 85610-TC; 85730-TC; 86886; 86900; 86901; 86920; 87081; 88305; 88312; 88313; 90935; 93005; 94640; 94760; 99291; C9113; J0885; J1815; J2250; J3010; J7050; J7612; P9021

== ENCOUNTER 2018-06-06 10:57 | Inpatient (IN) | payer OTHER, MEDICAID ==
[~2018-06-06] VITALS: Ht 172.7 cm; Wt 58.2 kg
[2018-06-06] VITALS (11 sets, daily range): BP systolic 116–140
[~2018-06-06 10:57] MED LIST changes: +BISA-79 PO; +DEXT30DR6 EACH EYE; +EPOE20005 SQ; +FAMO1TAB29 PO
[2018-06-06] MEDS ORDERED: AZITHROMYCIN 500 MG in NS 250 ML IV ONE ×2 (11:30→16:00)
[2018-06-06 12:14] LABS: CALCIUM 8.5 mg/dL (8.4-11.0); CREATININE 4.55 mg/dL (0.55-1.30); POTASSIUM 4.3 mmol/L (3.5-5.1)
[2018-06-06 12:16] LABS: BASOPHILS % (AUTO) 0.6 % (0.0-2.0); EOSINOPHILS # (AUTO) 0.2 K/uL (0.0-0.4); EOSINOPHILS % (AUTO) 3.3 % (0.0-4.0); LYMPHOCYTES # (AUTO) 0.6 K/uL (1.0-5.5); LYMPHOCYTES % (AUTO) 9.9 % (20.5-51.5); MEAN CORPUSCULAR HEMOGLOBIN 30 pg (27-31); MEAN CORPUSCULAR HGB CONC 31 % (32-36); MEAN CORPUSCULAR VOLUME 97 fL (79.0-98.0); MONOCYTES # (AUTO) 0.6 K/uL (0.0-1.0); PLATELET COUNT (AUTO) 232 K/uL (130-430); RED CELL DISTRIBUTION WIDTH 19.4 % (9.0-15.0); WHITE BLOOD COUNT (AUTO) 6.4 K/uL (4.8-10.8)
[2018-06-06 12:18] LABS: INR 1.1 (0.8-1.2)
[2018-06-06 12:19] LABS: RED BLOOD CELL COUNT(AUTO) 1.72 MIL/uL (4.2-6.2)
[2018-06-06 12:20] LABS: HEMATOCRIT 16.7 % (36-48); HEMOGLOBIN 5.1 g/dL (12.0-16.0); TOTAL BILIRUBIN 0.3 mg/dL (0.0-1.0)
[2018-06-06 13:10] LABS: NEUTROPHILS % (AUTO) 77.2 % (40.0-70.0)
[2018-06-06] MEDS ORDERED: cloNIDine HCL 0.2 MG TABLET PO PRN (14:45)
[2018-06-06] MEDS ORDERED: BISACODYL 5 MG TABLET.DR (DULCOLAX) PO PRN (14:45)
[2018-06-06] MEDS ORDERED: CA CARB PO SCH (14:45)
[2018-06-06] MEDS ORDERED: FAMOTIDINE PO SCH (14:45)
[2018-06-06] MEDS ORDERED: [UNRECOGNIZED DRUG - OTHER] PO SCH (14:45)
[2018-06-06] MEDS ORDERED: NON-FORMULARY MEDICATION (Ferric Citrate 210 MG) PO SCH (15:00)
[2018-06-06] MEDS: hydrALAZINE HCL 25 MG TABLET PO SCH ×2 (15:34→20:57)
[2018-06-06] MEDS: GABAPENTIN 300 MG CAPSULE PO SCH ×2 (15:34→20:57)
[2018-06-06] MEDS: EPOETIN ALFA 10,000 UNITS/ML VIAL SUBCUT SCH (16:47)
[2018-06-06] MEDS: INSULIN REGULAR, HUMAN 100 UNITS/ML, 10 ML VIAL (novoLIN R) SUBCUT PRN (16:47)
[2018-06-06] MEDS ORDERED: PANTOPRAZOLE SODIUM 80 MG in NS 100 ML IV ONE (17:00)
[2018-06-06] MEDS: PANTOPRAZOLE SODIUM 40 MG in NS 50 ML IV SCH ×2 (17:06→23:14)
[2018-06-06] MEDS: HYDROcodone/ACETAMIN 10-325 MG TAB PO PRN (17:09)
[2018-06-06 19:57] LABS: BASOPHILS % (AUTO) 0.6 % (0.0-2.0); EOSINOPHILS # (AUTO) 0.3 K/uL (0.0-0.4); EOSINOPHILS % (AUTO) 4.3 % (0.0-4.0); LYMPHOCYTES # (AUTO) 0.7 K/uL (1.0-5.5); PLATELET COUNT (AUTO) 204 K/uL (130-430)
[2018-06-06 20:00] LABS: HEMATOCRIT 22.4 % (36-48); HEMOGLOBIN 7.3 g/dL (12.0-16.0); LYMPHOCYTES % (AUTO) 10.7 % (20.5-51.5); MEAN CORPUSCULAR HEMOGLOBIN 30 pg (27-31); MEAN CORPUSCULAR HGB CONC 32 % (32-36); MONOCYTES # (AUTO) 0.8 K/uL (0.0-1.0); MONOCYTES % (AUTO) 12.3 % (1.7-9.3); NEUTROPHILS # (AUTO) 4.4 K/uL (1.8-7.7); NEUTROPHILS % (AUTO) 72.1 % (40.0-70.0); RED BLOOD CELL COUNT(AUTO) 2.39 MIL/uL (4.2-6.2); RED CELL DISTRIBUTION WIDTH 17.4 % (9.0-15.0); WHITE BLOOD COUNT (AUTO) 6.2 K/uL (4.8-10.8)
[2018-06-06 20:01] LABS: MEAN CORPUSCULAR VOLUME 94 fL (79.0-98.0)
[2018-06-06] MEDS ORDERED: buPROPion HCL 100 MG TABLET.SA PO ONE (20:51)
[2018-06-06] MEDS: DOCUSATE SODIUM 100 MG CAPSULE PO SCH (20:56)
[2018-06-06] MEDS: ATORVASTATIN 20 MG TABLET PO SCH (20:57)
[2018-06-06] MEDS: LORATADINE 10 MG TABLET PO SCH (20:57)
[2018-06-06] MEDS ORDERED: DEXTRAN EACH EYE SCH (21:00)
[2018-06-06] MEDS: CARVEDILOL 25 MG TABLET (COREG) PO SCH (21:00)
[2018-06-06] MEDS ORDERED: HYPROMELLOSE EACH EYE SCH (21:00)
[2018-06-06] MEDS: PEG 400/HYPROMELLOSE/GLYCERIN 15 ML DROPS OP SCH ×2 (21:00→21:51)
[2018-06-06] MEDS ORDERED: THIAMINE HCL 100 MG/ML VIAL ONE (21:40)
[2018-06-06] MEDS: buPROPion HCL 100 MG TABLET PO SCH (21:50)
[2018-06-07] VITALS (24 sets, daily range): BP systolic 106–150
[2018-06-07] MEDS: ZOLPIDEM TARTRATE 5 MG TABLET PO PRN (00:52)
[2018-06-07] MEDS: DIPHENHYDRAMINE HCL 25 MG CAPSULE PO PRN (02:11)
[2018-06-07] MEDS: PANTOPRAZOLE SODIUM 40 MG in NS 50 ML IV SCH ×4 (03:58→20:55)
[2018-06-07 06:17] LABS: CALCIUM 7.6 mg/dL (8.4-11.0); CREATININE 5.03 mg/dL (0.55-1.30); POTASSIUM 4.7 mmol/L (3.5-5.1)
[2018-06-07 06:21] LABS: BASOPHILS # (AUTO) 0.1 K/uL (0.0-0.2); BASOPHILS % (AUTO) 0.8 % (0.0-2.0); EOSINOPHILS # (AUTO) 0.3 K/uL (0.0-0.4); EOSINOPHILS % (AUTO) 4.3 % (0.0-4.0); HEMATOCRIT 22.5 % (36-48); LYMPHOCYTES # (AUTO) 0.8 K/uL (1.0-5.5); LYMPHOCYTES % (AUTO) 11.8 % (20.5-51.5); MEAN CORPUSCULAR HEMOGLOBIN 29 pg (27-31); MEAN CORPUSCULAR HGB CONC 31 % (32-36); MEAN CORPUSCULAR VOLUME 94 fL (79.0-98.0); MONOCYTES % (AUTO) 14.8 % (1.7-9.3); NEUTROPHILS # (AUTO) 4.6 K/uL (1.8-7.7); NEUTROPHILS % (AUTO) 68.3 % (40.0-70.0); PLATELET COUNT (AUTO) 205 K/uL (130-430); RED BLOOD CELL COUNT(AUTO) 2.39 MIL/uL (4.2-6.2); RED CELL DISTRIBUTION WIDTH 17.8 % (9.0-15.0); WHITE BLOOD COUNT (AUTO) 6.8 K/uL (4.8-10.8)
[2018-06-07 06:27] LABS: HEMOGLOBIN 6.9 g/dL (12.0-16.0)
[2018-06-07] MEDS: GABAPENTIN 300 MG CAPSULE PO SCH ×3 (08:16→20:28)
[2018-06-07] MEDS: hydrALAZINE HCL 25 MG TABLET PO SCH ×3 (08:18→20:31)
[2018-06-07] MEDS: amLODIPine BESYLATE 10 MG TABLET PO SCH (08:18)
[2018-06-07] MEDS: DOCUSATE SODIUM 100 MG CAPSULE PO SCH ×3 (08:19→20:29)
[2018-06-07] MEDS: PARoxetine HCL 20 MG TABLET PO SCH (08:19)
[2018-06-07] MEDS: NICOTINE 14 MG/24 HR PATCH.TD24 TD SCH (08:20)
[2018-06-07] MEDS: CARVEDILOL 25 MG TABLET (COREG) PO SCH ×2 (08:20→20:30)
[2018-06-07] MEDS: PEG 400/HYPROMELLOSE/GLYCERIN 15 ML DROPS OP SCH ×2 (08:21→20:28)
[2018-06-07] MEDS: VITAMIN B COMPLEX WITH C TAB/CAP PO SCH (08:22)
[2018-06-07] MEDS ORDERED: PANTOPRAZOLE SODIUM 40 MG TAB PO SCH (09:00)
[2018-06-07] MEDS: buPROPion HCL 100 MG TABLET PO SCH ×2 (10:07→20:28)
[2018-06-07] MEDS: HYDROcodone/ACETAMIN 10-325 MG TAB PO PRN ×2 (10:10→20:36)
[2018-06-07] MEDS: AZITHROMYCIN 500 MG in NS 250 ML IV SCH (20:27)
[2018-06-07] MEDS: LORATADINE 10 MG TABLET PO SCH (20:28)
[2018-06-07] MEDS: ATORVASTATIN 20 MG TABLET PO SCH (20:29)
[2018-06-08] VITALS (24 sets, daily range): BP systolic 104–164
[2018-06-08] MEDS: ZOLPIDEM TARTRATE 5 MG TABLET PO PRN (00:07)
[2018-06-08] MEDS: PANTOPRAZOLE SODIUM 40 MG in NS 50 ML IV SCH ×5 (01:29→20:02)
[2018-06-08 07:04] LABS: BASOPHILS % (AUTO) 0.3 % (0.0-2.0); EOSINOPHILS # (AUTO) 0.5 K/uL (0.0-0.4); EOSINOPHILS % (AUTO) 6.3 % (0.0-4.0); HEMATOCRIT 26.6 % (36-48); HEMOGLOBIN 8.8 g/dL (12.0-16.0); LYMPHOCYTES # (AUTO) 0.6 K/uL (1.0-5.5); LYMPHOCYTES % (AUTO) 8.6 % (20.5-51.5); MEAN CORPUSCULAR HEMOGLOBIN 30 pg (27-31); MEAN CORPUSCULAR HGB CONC 33 % (32-36); MEAN CORPUSCULAR VOLUME 92 fL (79.0-98.0); MONOCYTES # (AUTO) 0.9 K/uL (0.0-1.0); MONOCYTES % (AUTO) 11.4 % (1.7-9.3); NEUTROPHILS # (AUTO) 5.5 K/uL (1.8-7.7); NEUTROPHILS % (AUTO) 73.4 % (40.0-70.0); PLATELET COUNT (AUTO) 206 K/uL (130-430); RED CELL DISTRIBUTION WIDTH 17.9 % (9.0-15.0); WHITE BLOOD COUNT (AUTO) 7.5 K/uL (4.8-10.8)
[2018-06-08 08:09] LABS: CALCIUM 7.8 mg/dL (8.4-11.0); CREATININE 5.71 mg/dL (0.55-1.30); POTASSIUM 5.1 mmol/L (3.5-5.1)
[2018-06-08 08:15] LABS: ALBUMIN 1.9 g/dL (3.4-4.8); TOTAL BILIRUBIN 0.4 mg/dL (0.0-1.0)
[2018-06-08] MEDS: LEVOFLOXACIN 250 MG/D5W 50 ML IV SCH (08:21)
[2018-06-08] MEDS: hydrALAZINE HCL 25 MG TABLET PO SCH ×3 (08:23→21:47)
[2018-06-08] MEDS: DOCUSATE SODIUM 100 MG CAPSULE PO SCH ×2 (08:23→21:46)
[2018-06-08] MEDS: GABAPENTIN 300 MG CAPSULE PO SCH ×3 (08:24→21:46)
[2018-06-08] MEDS: amLODIPine BESYLATE 10 MG TABLET PO SCH (08:24)
[2018-06-08] MEDS: PARoxetine HCL 20 MG TABLET PO SCH (08:24)
[2018-06-08] MEDS: CARVEDILOL 25 MG TABLET (COREG) PO SCH ×2 (08:25→21:46)
[2018-06-08] MEDS: PEG 400/HYPROMELLOSE/GLYCERIN 15 ML DROPS OP SCH ×2 (08:25→21:48)
[2018-06-08] MEDS: VITAMIN B COMPLEX WITH C TAB/CAP PO SCH (08:26)
[2018-06-08] MEDS: buPROPion HCL 100 MG TABLET PO SCH ×2 (08:28→21:46)
[2018-06-08] MEDS: NICOTINE 14 MG/24 HR PATCH.TD24 TD SCH (08:29)
[2018-06-08] MEDS: ACETAMINOPHEN 325 MG TABLET PO PRN (10:14)
[2018-06-08] MEDS ORDERED: BISACODYL 5 MG TABLET.DR (DULCOLAX) PO ONE (12:00)
[2018-06-08] MEDS ORDERED: GOLYTELY / COLYTE SOLUTION 4 LITERS PO ONE (13:00)
[2018-06-08] MEDS: AZITHROMYCIN 500 MG in NS 250 ML IV SCH (21:45)
[2018-06-08] MEDS: LORATADINE 10 MG TABLET PO SCH (21:46)
[2018-06-08] MEDS: ATORVASTATIN 20 MG TABLET PO SCH (21:47)
[2018-06-09] VITALS (18 sets, daily range): BP systolic 128–161
[2018-06-09] MEDS: ZOLPIDEM TARTRATE 5 MG TABLET PO PRN ×2 (00:10→23:22)
[2018-06-09] MEDS: HYDROcodone/ACETAMIN 10-325 MG TAB PO PRN (00:38)
[2018-06-09] MEDS: PANTOPRAZOLE SODIUM 40 MG in NS 50 ML IV SCH ×5 (00:59→21:32)
[2018-06-09 06:25] LABS: BASOPHILS % (AUTO) 0.4 % (0.0-2.0); EOSINOPHILS # (AUTO) 0.3 K/uL (0.0-0.4); EOSINOPHILS % (AUTO) 5.6 % (0.0-4.0); HEMATOCRIT 25.2 % (36-48); HEMOGLOBIN 8.1 g/dL (12.0-16.0); LYMPHOCYTES # (AUTO) 0.6 K/uL (1.0-5.5); LYMPHOCYTES % (AUTO) 10.4 % (20.5-51.5); MEAN CORPUSCULAR HEMOGLOBIN 29 pg (27-31); MEAN CORPUSCULAR HGB CONC 32 % (32-36); MEAN CORPUSCULAR VOLUME 91 fL (79.0-98.0); MONOCYTES # (AUTO) 0.6 K/uL (0.0-1.0); MONOCYTES % (AUTO) 11.1 % (1.7-9.3); NEUTROPHILS % (AUTO) 72.5 % (40.0-70.0); PLATELET COUNT (AUTO) 196 K/uL (130-430); RED BLOOD CELL COUNT(AUTO) 2.77 MIL/uL (4.2-6.2); RED CELL DISTRIBUTION WIDTH 17.7 % (9.0-15.0); WHITE BLOOD COUNT (AUTO) 5.5 K/uL (4.8-10.8)
[2018-06-09] MEDS: INSULIN REGULAR, HUMAN 100 UNITS/ML, 10 ML VIAL (novoLIN R) SUBCUT PRN ×2 (06:31→16:58)
[2018-06-09] MEDS: ALBUTEROL SULFATE 0.083% 2.5 MG/3 ML VIAL.NEB INH PRN (07:37)
[2018-06-09 07:40] LABS: CALCIUM 7.5 mg/dL (8.4-11.0); CREATININE 3.49 mg/dL (0.55-1.30); POTASSIUM 3.4 mmol/L (3.5-5.1)
[2018-06-09 07:44] LABS: INR 1.2 (0.8-1.2); PROTHROMBIN TIME 11.8 SECS (9.5-12.5)
[2018-06-09] MEDS: hydrALAZINE HCL 25 MG TABLET PO SCH ×3 (09:00→21:45)
[2018-06-09] MEDS: PARoxetine HCL 20 MG TABLET PO SCH ×2 (09:00→15:30)
[2018-06-09] MEDS: buPROPion HCL 100 MG TABLET PO SCH ×2 (09:00→21:35)
[2018-06-09] MEDS: VITAMIN B COMPLEX WITH C TAB/CAP PO SCH (09:00)
[2018-06-09] MEDS: GABAPENTIN 300 MG CAPSULE PO SCH ×3 (09:00→21:35)
[2018-06-09] MEDS: NICOTINE 14 MG/24 HR PATCH.TD24 TD SCH (09:00)
[2018-06-09] MEDS: DOCUSATE SODIUM 100 MG CAPSULE PO SCH ×2 (09:00→21:00)
[2018-06-09] MEDS: CARVEDILOL 25 MG TABLET (COREG) PO SCH ×2 (09:00→21:45)
[2018-06-09] MEDS: amLODIPine BESYLATE 10 MG TABLET PO SCH ×2 (09:00→15:31)
[2018-06-09] MEDS: PEG 400/HYPROMELLOSE/GLYCERIN 15 ML DROPS OP SCH ×2 (09:03→21:36)
[2018-06-09] MEDS: ACETAMINOPHEN 325 MG TABLET PO PRN (09:18)
[2018-06-09] MEDS ORDERED: D5/0.45 NS 1,000 ML IV SCH (10:45)
[2018-06-09] MEDS: ONDANSETRON 4 MG ODT TAB PO PRN (12:17)
[2018-06-09] MEDS ORDERED: MEPERIDINE HCL/PF 50 MG/ML AMP ONE (13:30)
[2018-06-09] MEDS ORDERED: MIDAZOLAM HCL 5 MG/5 ML VIAL ONE (13:31)
[2018-06-09] MEDS ORDERED: PARoxetine HCL 20 MG TABLET PO ONE (15:45)
[2018-06-09] MEDS: EPOETIN ALFA 10,000 UNITS/ML VIAL SUBCUT SCH (17:41)
[2018-06-09] MEDS: AZITHROMYCIN 500 MG in NS 250 ML IV SCH (21:33)
[2018-06-09] MEDS: LORATADINE 10 MG TABLET PO SCH (21:34)
[2018-06-09] MEDS: ATORVASTATIN 20 MG TABLET PO SCH (21:35)
[2018-06-09] MEDS: HYDROcodone/ACETAMIN 5-325 MG TAB (NORCO/ VICODIN) PO PRN (21:54)
[2018-06-10 00:20] VITALS: BP_SYST 104
[2018-06-10] MEDS: PANTOPRAZOLE SODIUM 40 MG in NS 50 ML IV SCH ×4 (03:17→20:17)
[2018-06-10 06:45] LABS: CALCIUM 7.7 mg/dL (8.4-11.0); CREATININE 4.19 mg/dL (0.55-1.30); POTASSIUM 3.9 mmol/L (3.5-5.1)
[2018-06-10 07:01] LABS: BASOPHILS % (AUTO) 0.5 % (0.0-2.0); EOSINOPHILS # (AUTO) 0.2 K/uL (0.0-0.4); HEMOGLOBIN 7.1 g/dL (12.0-16.0); LYMPHOCYTES # (AUTO) 0.7 K/uL (1.0-5.5); MEAN CORPUSCULAR HEMOGLOBIN 30 pg (27-31); MEAN CORPUSCULAR HGB CONC 32 % (32-36); MEAN CORPUSCULAR VOLUME 92 fL (79.0-98.0); MONOCYTES # (AUTO) 0.6 K/uL (0.0-1.0); MONOCYTES % (AUTO) 9.7 % (1.7-9.3); NEUTROPHILS # (AUTO) 4.7 K/uL (1.8-7.7); NEUTROPHILS % (AUTO) 73.8 % (40.0-70.0); PLATELET COUNT (AUTO) 162 K/uL (130-430); RED BLOOD CELL COUNT(AUTO) 2.39 MIL/uL (4.2-6.2); RED CELL DISTRIBUTION WIDTH 17.7 % (9.0-15.0); WHITE BLOOD COUNT (AUTO) 6.2 K/uL (4.8-10.8)
[2018-06-10 07:18] LABS: HEMATOCRIT 21.9 % (36-48)
[2018-06-10] MEDS: hydrALAZINE HCL 25 MG TABLET PO SCH ×3 (09:00→20:12)
[2018-06-10] MEDS: CARVEDILOL 25 MG TABLET (COREG) PO SCH ×2 (09:00→20:13)
[2018-06-10] MEDS: GABAPENTIN 300 MG CAPSULE PO SCH ×3 (09:00→20:08)
[2018-06-10] MEDS: amLODIPine BESYLATE 10 MG TABLET PO SCH (09:00)
[2018-06-10] MEDS: VITAMIN B COMPLEX WITH C TAB/CAP PO SCH (09:00)
[2018-06-10] MEDS: DOCUSATE SODIUM 100 MG CAPSULE PO SCH ×2 (09:00→20:13)
[2018-06-10] MEDS: buPROPion HCL 100 MG TABLET PO SCH ×2 (09:00→20:08)
[2018-06-10] MEDS: PARoxetine HCL 20 MG TABLET PO SCH (09:00)
[2018-06-10] MEDS: NICOTINE 14 MG/24 HR PATCH.TD24 TD SCH (10:08)
[2018-06-10] MEDS: PEG 400/HYPROMELLOSE/GLYCERIN 15 ML DROPS OP SCH ×2 (10:09→20:07)
[2018-06-10] MEDS ORDERED: SIMETHICONE 40 MG/0.6 ML ML ONE ×2 (10:52→14:00)
[2018-06-10 11:09] VITALS: BP_SYST 128
[2018-06-10] MEDS: LEVOFLOXACIN 250 MG/D5W 50 ML IV SCH (12:12)
[2018-06-10] MEDS: MIDAZOLAM HCL 5 MG/5 ML VIAL ONE ×2 (14:00→14:05)
[2018-06-10] MEDS: MEPERIDINE HCL/PF 100 MG/ML AMP ONE ×2 (14:00→14:05)
[2018-06-10] MEDS: HYDROcodone/ACETAMIN 10-325 MG TAB PO PRN (15:04)
[2018-06-10 15:18] VITALS: BP_SYST 145
[2018-06-10 19:31] VITALS: BP_SYST 155
[2018-06-10] MEDS: HYDROcodone/ACETAMIN 5-325 MG TAB (NORCO/ VICODIN) PO PRN (20:01)
[2018-06-10] MEDS: AZITHROMYCIN 500 MG in NS 250 ML IV SCH (20:03)
[2018-06-10] MEDS: ATORVASTATIN 20 MG TABLET PO SCH (20:07)
[2018-06-10] MEDS: LORATADINE 10 MG TABLET PO SCH (20:07)
[2018-06-11] MEDS: ZOLPIDEM TARTRATE 5 MG TABLET PO PRN (00:20)
[2018-06-11 00:52] VITALS: BP_SYST 137
[2018-06-11] MEDS: PANTOPRAZOLE SODIUM 40 MG in NS 50 ML IV SCH ×3 (01:32→11:49)
[2018-06-11 07:50] LABS: BASOPHILS % (AUTO) 0.6 % (0.0-2.0); EOSINOPHILS # (AUTO) 0.3 K/uL (0.0-0.4); EOSINOPHILS % (AUTO) 6.4 % (0.0-4.0); HEMATOCRIT 25.9 % (36-48); HEMOGLOBIN 8.4 g/dL (12.0-16.0); LYMPHOCYTES # (AUTO) 0.7 K/uL (1.0-5.5); MEAN CORPUSCULAR HEMOGLOBIN 30 pg (27-31); MEAN CORPUSCULAR HGB CONC 32 % (32-36); MEAN CORPUSCULAR VOLUME 92 fL (79.0-98.0); MONOCYTES # (AUTO) 0.7 K/uL (0.0-1.0); MONOCYTES % (AUTO) 13.9 % (1.7-9.3); NEUTROPHILS # (AUTO) 3.3 K/uL (1.8-7.7); NEUTROPHILS % (AUTO) 66.1 % (40.0-70.0); PLATELET COUNT (AUTO) 123 K/uL (130-430); RED CELL DISTRIBUTION WIDTH 16.6 % (9.0-15.0)
[2018-06-11 08:00] VITALS: BP_SYST 141
[2018-06-11] MEDS: DOCUSATE SODIUM 100 MG CAPSULE PO SCH ×3 (09:00→21:00)
[2018-06-11] MEDS: buPROPion HCL 100 MG TABLET PO SCH ×2 (09:04→21:07)
[2018-06-11] MEDS: CARVEDILOL 25 MG TABLET (COREG) PO SCH ×2 (09:05→21:09)
[2018-06-11] MEDS: hydrALAZINE HCL 25 MG TABLET PO SCH ×3 (09:05→21:08)
[2018-06-11] MEDS: PEG 400/HYPROMELLOSE/GLYCERIN 15 ML DROPS OP SCH ×2 (09:06→21:05)
[2018-06-11] MEDS: PARoxetine HCL 20 MG TABLET PO SCH (09:06)
[2018-06-11] MEDS: amLODIPine BESYLATE 10 MG TABLET PO SCH (09:06)
[2018-06-11] MEDS: GABAPENTIN 300 MG CAPSULE PO SCH ×3 (09:06→21:07)
[2018-06-11] MEDS: NICOTINE 14 MG/24 HR PATCH.TD24 TD SCH (09:07)
[2018-06-11] MEDS: VITAMIN B COMPLEX WITH C TAB/CAP PO SCH (09:07)
[2018-06-11] MEDS: HYDROcodone/ACETAMIN 10-325 MG TAB PO PRN ×2 (10:17→21:04)
[2018-06-11 12:48] VITALS: BP_SYST 120
[2018-06-11] MEDS ORDERED: PANTOPRAZOLE SODIUM 40 MG TAB PO ONE (15:15)
[2018-06-11 16:24] VITALS: BP_SYST 118
[2018-06-11] MEDS: EPOETIN ALFA 10,000 UNITS/ML VIAL SUBCUT SCH (17:03)
[2018-06-11] MEDS: HYDROcodone/ACETAMIN 5-325 MG TAB (NORCO/ VICODIN) PO PRN (17:07)
[2018-06-11 19:50] VITALS: BP_SYST 133
[2018-06-11] MEDS: LORATADINE 10 MG TABLET PO SCH (21:07)
[2018-06-11] MEDS: ATORVASTATIN 20 MG TABLET PO SCH (21:07)
[2018-06-11] MEDS: PANTOPRAZOLE SODIUM 40 MG TAB PO SCH (21:07)
[2018-06-12] MEDS: ZOLPIDEM TARTRATE 5 MG TABLET PO PRN (00:37)
[2018-06-12 04:52] VITALS: BP_SYST 124
[2018-06-12 06:34] LABS: BASOPHILS % (AUTO) 0.6 % (0.0-2.0); EOSINOPHILS # (AUTO) 0.3 K/uL (0.0-0.4); EOSINOPHILS % (AUTO) 5.8 % (0.0-4.0); HEMATOCRIT 23.3 % (36-48); HEMOGLOBIN 7.3 g/dL (12.0-16.0); LYMPHOCYTES # (AUTO) 0.5 K/uL (1.0-5.5); MEAN CORPUSCULAR HEMOGLOBIN 29 pg (27-31); MEAN CORPUSCULAR HGB CONC 31 % (32-36); MEAN CORPUSCULAR VOLUME 93 fL (79.0-98.0); MONOCYTES # (AUTO) 0.6 K/uL (0.0-1.0); MONOCYTES % (AUTO) 11.4 % (1.7-9.3); NEUTROPHILS # (AUTO) 3.6 K/uL (1.8-7.7); NEUTROPHILS % (AUTO) 71.2 % (40.0-70.0); PLATELET COUNT (AUTO) 108 K/uL (130-430)
[2018-06-12 07:07] LABS: CALCIUM 7.7 mg/dL (8.4-11.0); CREATININE 4.3 mg/dL (0.55-1.30); POTASSIUM 4.3 mmol/L (3.5-5.1)
[2018-06-12] MEDS: CARVEDILOL 25 MG TABLET (COREG) PO SCH ×2 (09:00→20:45)
[2018-06-12] MEDS: GABAPENTIN 300 MG CAPSULE PO SCH ×3 (09:00→20:46)
[2018-06-12] MEDS: PANTOPRAZOLE SODIUM 40 MG TAB PO SCH ×2 (09:00→20:44)
[2018-06-12] MEDS: hydrALAZINE HCL 25 MG TABLET PO SCH ×3 (09:00→20:46)
[2018-06-12] MEDS: DOCUSATE SODIUM 100 MG CAPSULE PO SCH ×2 (09:00→20:56)
[2018-06-12] MEDS: buPROPion HCL 100 MG TABLET PO SCH ×2 (09:00→20:46)
[2018-06-12 12:32] VITALS: BP_SYST 136
[2018-06-12 14:47] VITALS: BP_SYST 136
[2018-06-12 16:40] VITALS: BP_SYST 130
[2018-06-12] MEDS: LEVOFLOXACIN 250 MG/D5W 50 ML IV SCH (17:22)
[2018-06-12] MEDS: PEG 400/HYPROMELLOSE/GLYCERIN 15 ML DROPS OP SCH ×2 (17:23→21:00)
[2018-06-12] MEDS: PARoxetine HCL 20 MG TABLET PO SCH (17:23)
[2018-06-12] MEDS: VITAMIN B COMPLEX WITH C TAB/CAP PO SCH (17:25)
[2018-06-12] MEDS: NICOTINE 14 MG/24 HR PATCH.TD24 TD SCH (17:26)
[2018-06-12] MEDS: amLODIPine BESYLATE 10 MG TABLET PO SCH (17:31)
[2018-06-12] MEDS: HYDROcodone/ACETAMIN 10-325 MG TAB PO PRN ×2 (17:41→22:20)
[2018-06-12 18:40] VITALS: BP_SYST 157
[2018-06-12] MEDS: LORATADINE 10 MG TABLET PO SCH (20:45)
[2018-06-12] MEDS: ATORVASTATIN 20 MG TABLET PO SCH (20:46)
[2018-06-13 00:20] VITALS: BP_SYST 123
[2018-06-13] MEDS: ZOLPIDEM TARTRATE 5 MG TABLET PO PRN (00:44)
[2018-06-13 06:59] LABS: BASOPHILS # (AUTO) 0.1 K/uL (0.0-0.2); BASOPHILS % (AUTO) 1.1 % (0.0-2.0); EOSINOPHILS # (AUTO) 0.2 K/uL (0.0-0.4); HEMATOCRIT 26.5 % (36-48); HEMOGLOBIN 8.2 g/dL (12.0-16.0); LYMPHOCYTES # (AUTO) 0.9 K/uL (1.0-5.5); LYMPHOCYTES % (AUTO) 17.4 % (20.5-51.5); MEAN CORPUSCULAR HEMOGLOBIN 29 pg (27-31); MEAN CORPUSCULAR HGB CONC 31 % (32-36); MEAN CORPUSCULAR VOLUME 92 fL (79.0-98.0); MONOCYTES # (AUTO) 0.6 K/uL (0.0-1.0); MONOCYTES % (AUTO) 12.7 % (1.7-9.3); NEUTROPHILS # (AUTO) 3.1 K/uL (1.8-7.7); NEUTROPHILS % (AUTO) 63.8 % (40.0-70.0); PLATELET COUNT (AUTO) 95 K/uL (130-430); RED BLOOD CELL COUNT(AUTO) 2.88 MIL/uL (4.2-6.2); RED CELL DISTRIBUTION WIDTH 15.2 % (9.0-15.0); WHITE BLOOD COUNT (AUTO) 4.9 K/uL (4.8-10.8)
[2018-06-13 07:02] LABS: CALCIUM 7.7 mg/dL (8.4-11.0); CREATININE 3.46 mg/dL (0.55-1.30)
[2018-06-13 08:00] VITALS: BP_SYST 144
[2018-06-13] MEDS: DOCUSATE SODIUM 100 MG CAPSULE PO SCH ×2 (09:00→21:28)
[2018-06-13] MEDS: ALBUTEROL SULFATE 0.083% 2.5 MG/3 ML VIAL.NEB INH PRN (10:01)
[2018-06-13] MEDS: HYDROcodone/ACETAMIN 10-325 MG TAB PO PRN ×2 (10:28→21:29)
[2018-06-13] MEDS: hydrALAZINE HCL 25 MG TABLET PO SCH ×3 (10:29→21:37)
[2018-06-13] MEDS: CARVEDILOL 25 MG TABLET (COREG) PO SCH ×2 (10:29→21:31)
[2018-06-13] MEDS: buPROPion HCL 100 MG TABLET PO SCH ×2 (10:29→21:29)
[2018-06-13] MEDS: amLODIPine BESYLATE 10 MG TABLET PO SCH (10:30)
[2018-06-13] MEDS: PANTOPRAZOLE SODIUM 40 MG TAB PO SCH ×2 (10:30→21:29)
[2018-06-13] MEDS: GABAPENTIN 300 MG CAPSULE PO SCH ×3 (10:31→21:28)
[2018-06-13] MEDS: PARoxetine HCL 20 MG TABLET PO SCH (10:31)
[2018-06-13] MEDS: PEG 400/HYPROMELLOSE/GLYCERIN 15 ML DROPS OP SCH ×2 (10:40→21:32)
[2018-06-13] MEDS: NICOTINE 14 MG/24 HR PATCH.TD24 TD SCH (12:27)
[2018-06-13] MEDS: VITAMIN B COMPLEX WITH C TAB/CAP PO SCH (12:27)
[2018-06-13 12:33] VITALS: BP_SYST 154
[2018-06-13 16:27] VITALS: BP_SYST 149
[2018-06-13] MEDS: EPOETIN ALFA 10,000 UNITS/ML VIAL SUBCUT SCH (17:39)
[2018-06-13 20:25] VITALS: BP_SYST 136
[2018-06-13] MEDS: DIPHENHYDRAMINE HCL 25 MG CAPSULE PO PRN (21:28)
[2018-06-13] MEDS: LORATADINE 10 MG TABLET PO SCH (21:29)
[2018-06-13] MEDS: ATORVASTATIN 20 MG TABLET PO SCH (21:29)
[2018-06-13] MEDS: INSULIN REGULAR, HUMAN 100 UNITS/ML, 10 ML VIAL (novoLIN R) SUBCUT PRN (21:34)
[2018-06-13 23:40] VITALS: BP_SYST 137
[2018-06-14] MEDS: ZOLPIDEM TARTRATE 5 MG TABLET PO PRN (00:25)
[2018-06-14] MEDS: HYDROcodone/ACETAMIN 10-325 MG TAB PO PRN (03:22)
[2018-06-14 06:37] LABS: CALCIUM 7.6 mg/dL (8.4-11.0); CREATININE 4.38 mg/dL (0.55-1.30); POTASSIUM 4.4 mmol/L (3.5-5.1)
[2018-06-14 06:58] LABS: BASOPHILS % (AUTO) 0.7 % (0.0-2.0); EOSINOPHILS # (AUTO) 0.3 K/uL (0.0-0.4); LYMPHOCYTES # (AUTO) 0.9 K/uL (1.0-5.5); LYMPHOCYTES % (AUTO) 17.3 % (20.5-51.5); MEAN CORPUSCULAR HEMOGLOBIN 29 pg (27-31); MEAN CORPUSCULAR HGB CONC 32 % (32-36); MEAN CORPUSCULAR VOLUME 93 fL (79.0-98.0); MONOCYTES # (AUTO) 0.5 K/uL (0.0-1.0); MONOCYTES % (AUTO) 9.5 % (1.7-9.3); NEUTROPHILS # (AUTO) 3.4 K/uL (1.8-7.7); NEUTROPHILS % (AUTO) 67.5 % (40.0-70.0); PLATELET COUNT (AUTO) 105 K/uL (130-430); RED BLOOD CELL COUNT(AUTO) 2.25 MIL/uL (4.2-6.2); RED CELL DISTRIBUTION WIDTH 15.6 % (9.0-15.0); WHITE BLOOD COUNT (AUTO) 5.1 K/uL (4.8-10.8)
[2018-06-14 07:04] LABS: TOTAL IRON BIND. CAPACITY 113 ug/dL (250-450)
[2018-06-14 07:39] LABS: HEMOGLOBIN 6.6 g/dL (12.0-16.0)
[2018-06-14 07:40] LABS: HEMATOCRIT 20.8 % (36-48)
[2018-06-14 08:11] VITALS: BP_SYST 105
[2018-06-14] MEDS: LEVOFLOXACIN 250 MG/D5W 50 ML IV SCH (08:48)
[2018-06-14] MEDS: GABAPENTIN 300 MG CAPSULE PO SCH ×3 (08:49→21:22)
[2018-06-14] MEDS: DOCUSATE SODIUM 100 MG CAPSULE PO SCH ×2 (08:49→21:20)
[2018-06-14] MEDS: PANTOPRAZOLE SODIUM 40 MG TAB PO SCH ×2 (08:52→21:21)
[2018-06-14] MEDS: buPROPion HCL 100 MG TABLET PO SCH ×2 (08:52→21:21)
[2018-06-14] MEDS: PARoxetine HCL 20 MG TABLET PO SCH (08:52)
[2018-06-14] MEDS: CARVEDILOL 25 MG TABLET (COREG) PO SCH ×2 (09:00→21:21)
[2018-06-14] MEDS: amLODIPine BESYLATE 10 MG TABLET PO SCH (09:00)
[2018-06-14] MEDS: hydrALAZINE HCL 25 MG TABLET PO SCH ×3 (09:00→21:23)
[2018-06-14] MEDS: VITAMIN B COMPLEX WITH C TAB/CAP PO SCH (09:20)
[2018-06-14] MEDS: NICOTINE 14 MG/24 HR PATCH.TD24 TD SCH (09:20)
[2018-06-14] MEDS: PEG 400/HYPROMELLOSE/GLYCERIN 15 ML DROPS OP SCH ×2 (09:22→21:00)
[2018-06-14 12:02] VITALS: BP_SYST 106
[2018-06-14 13:57] LABS: RETICULOCYTE COUNT 4.6 % (0.5-1.5)
[2018-06-14] MEDS: DIPHENHYDRAMINE HCL 25 MG CAPSULE PO PRN (14:01)
[2018-06-14 14:34] VITALS: BP_SYST 145
[2018-06-14] MEDS ORDERED: LORazepam 2 MG/ML VIAL IVP ONE (16:30)
[2018-06-14] MEDS ORDERED: LORazepam 2 MG/ML VIAL ONE (16:39)
[2018-06-14] MEDS: LORATADINE 10 MG TABLET PO SCH (21:22)
[2018-06-14] MEDS: ATORVASTATIN 20 MG TABLET PO SCH (21:22)
[2018-06-14] MEDS: ONDANSETRON 4 MG ODT TAB PO PRN (23:01)
[2018-06-14 23:55] VITALS: BP_SYST 151
[2018-06-15] MEDS: BENZOCAINE/MENTHOL 1 EACH LOZENGE MM PRN ×2 (05:42→12:43)
[2018-06-15 07:04] LABS: BASOPHILS # (AUTO) 0.1 K/uL (0.0-0.2); BASOPHILS % (AUTO) 1.1 % (0.0-2.0); EOSINOPHILS # (AUTO) 0.2 K/uL (0.0-0.4); EOSINOPHILS % (AUTO) 3.2 % (0.0-4.0); HEMATOCRIT 29.3 % (36-48); HEMOGLOBIN 9.4 g/dL (12.0-16.0); LYMPHOCYTES # (AUTO) 0.8 K/uL (1.0-5.5); LYMPHOCYTES % (AUTO) 15.8 % (20.5-51.5); MEAN CORPUSCULAR HEMOGLOBIN 29 pg (27-31); MEAN CORPUSCULAR HGB CONC 32 % (32-36); MEAN CORPUSCULAR VOLUME 91 fL (79.0-98.0); MONOCYTES # (AUTO) 0.5 K/uL (0.0-1.0); MONOCYTES % (AUTO) 9.7 % (1.7-9.3); NEUTROPHILS # (AUTO) 3.4 K/uL (1.8-7.7); NEUTROPHILS % (AUTO) 70.2 % (40.0-70.0); PLATELET COUNT (AUTO) 143 K/uL (130-430); RED BLOOD CELL COUNT(AUTO) 3.23 MIL/uL (4.2-6.2); RED CELL DISTRIBUTION WIDTH 15.2 % (9.0-15.0)
[2018-06-15 07:05] LABS: ALBUMIN 1.5 g/dL (3.4-4.8); CREATININE 3.2 mg/dL (0.55-1.30); POTASSIUM 4.1 mmol/L (3.5-5.1); TOTAL BILIRUBIN 0.3 mg/dL (0.0-1.0)
[2018-06-15 08:00] VITALS: BP_SYST 121
[2018-06-15] MEDS ORDERED: GOLYTELY / COLYTE SOLUTION 4 LITERS PO ONE ×3 (08:45→09:15)
[2018-06-15] MEDS: PEG 400/HYPROMELLOSE/GLYCERIN 15 ML DROPS OP SCH (09:07)
[2018-06-15 12:00] VITALS: BP_SYST 135
[2018-06-15 14:17] VITALS: BP_SYST 135
[2018-06-15 16:00] VITALS: BP_SYST 128
[2018-06-17 07:08] LABS: FOLATE (FOLIC ACID) 9.2 ng/mL (>3.0)
== END 2018-06-15 15:25 | disposition short-term general hospital (02) | DRG 377 ==
LOC: SED 10:57 → STU 13:22 → SIC 13:37 → STU 06-09 16:15
PROVIDERS: ADMIT Internal Medicine; ATTEND Family Medicine
PROC: 30233N1 Transfusion of Nonautologous Red Blood Cells into Peripheral Vein, Percutaneous Approach (ICD-10-PCS; 2018-06-06)
PROC: 5A1D70Z Performance of Urinary Filtration, Intermittent, Less than 6 Hours Per Day (ICD-10-PCS; 2018-06-08)
PROC: 0DBL8ZX Excision of Transverse Colon, Via Natural or Artificial Opening Endoscopic, Diagnostic (ICD-10-PCS; 2018-06-09)
PROC: 0DBM8ZX Excision of Descending Colon, Via Natural or Artificial Opening Endoscopic, Diagnostic (ICD-10-PCS; 2018-06-09)
PROC: 5A1D70Z Performance of Urinary Filtration, Intermittent, Less than 6 Hours Per Day (ICD-10-PCS; 2018-06-10)
PROC: 0DB68ZX Excision of Stomach, Via Natural or Artificial Opening Endoscopic, Diagnostic (ICD-10-PCS; principal; 2018-06-10 13:30)
PROC: 5A1D70Z Performance of Urinary Filtration, Intermittent, Less than 6 Hours Per Day (ICD-10-PCS; 2018-06-12)
PROC: 5A1D70Z Performance of Urinary Filtration, Intermittent, Less than 6 Hours Per Day (ICD-10-PCS; 2018-06-14)
DX: K29.71 Gastritis, unspecified, with bleeding (principal); N18.6 End stage renal disease; E43 Unspecified severe protein-calorie malnutrition; I13.2 Hypertensive heart and chronic kidney disease with heart failure and with stage 5 chronic kidney disease, or end stage renal disease; Z68.1 Body mass index [BMI] 19.9 or less, adult; D12.3 Benign neoplasm of transverse colon; K29.81 Duodenitis with bleeding; K64.8 Other hemorrhoids; K20.9 Esophagitis, unspecified; D12.4 Benign neoplasm of descending colon; D50.0 Iron deficiency anemia secondary to blood loss (chronic); E11.22 Type 2 diabetes mellitus with diabetic chronic kidney disease; I50.9 Heart failure, unspecified; E11.51 Type 2 diabetes mellitus with diabetic peripheral angiopathy without gangrene; F17.200 Nicotine dependence, unspecified, uncomplicated; J44.9 Chronic obstructive pulmonary disease, unspecified; Z89.511 Acquired absence of right leg below knee; Z99.2 Dependence on renal dialysis; Z88.2 Allergy status to sulfonamides; Z88.0 Allergy status to penicillin
CPT/HCPCS: 36415; 36600; 43239; 45384; 71045; 78278-TC; 80048; 80053; 82607; 82728; 82746; 82803-TC; 82962; 83010; 83540-TC; 83550-TC; 83605; 83615-TC; 83880; 84484; 85025; 85044-TC; 85379; 85610-TC; 85730-TC; 86886; 86900; 86901; 86920; 87040-TC; 87081; 88305; 88312; 88313; 90935; 90937; 93005; 94640; 94760; 96365; 99285; A9560; C9113; J0456; J0885; J1815; J1956; J2060; J2175; J2250; J3411; J7030; J7040; J7050; J7613; P9021; Q0162; Q0163

== ENCOUNTER 2018-11-26 02:38 | Emergency (ER) | payer OTHER, MEDICAID ==
[~2018-11-26] VITALS: Ht 172.7 cm; Wt 62.6 kg
[2018-11-26 02:40] VITALS: BP_SYST 154
[2018-11-26] MEDS ORDERED: LIDOCAINE 2%, 20 ML MDV INJ ONE (03:45)
[2018-11-26] MEDS ORDERED: KETOROLAC TROMETHAMINE 60 MG/2 ML VIAL IM ONE (04:00)
[2018-11-26] MEDS ORDERED: PHYTONADIONE 10 MG/ML AMP ONE (06:26)
[2018-11-26 07:21] VITALS: BP_SYST 152
== END 2018-11-26 07:21 | disposition home or self-care (01) ==
LOC: SED 02:38
DX: S01.111A Laceration without foreign body of right eyelid and periocular area, initial encounter (principal); J44.9 Chronic obstructive pulmonary disease, unspecified; K21.9 Gastro-esophageal reflux disease without esophagitis; I12.9 Hypertensive chronic kidney disease with stage 1 through stage 4 chronic kidney disease, or unspecified chronic kidney disease; E11.22 Type 2 diabetes mellitus with diabetic chronic kidney disease; N18.9 Chronic kidney disease, unspecified; Z86.79 Personal history of other diseases of the circulatory system; Z99.2 Dependence on renal dialysis; Z88.0 Allergy status to penicillin; Z88.2 Allergy status to sulfonamides; Z79.82 Long term (current) use of aspirin; Z79.899 Other long term (current) drug therapy; W06.XXXA Fall from bed, initial encounter; Y93.89 Activity, other specified; Y92.89 Other specified places as the place of occurrence of the external cause; Y99.8 Other external cause status
CPT/HCPCS: 12011; 70450; 70486; 72125; 96372; 99284; J1885; J2001; J3430

== ENCOUNTER 2018-12-12 01:02 | Emergency (ER) | payer OTHER, MEDICAID ==
[~2018-12-12] VITALS: Ht 172.7 cm; Wt 62.6 kg
[2018-12-12 01:05] VITALS: BP_SYST 153
[2018-12-12] MEDS ORDERED: IPRATROPIUM/ALBUTEROL SULFATE 3 ML AMPUL.NEB (DUONEB) INH ONE (01:15)
[2018-12-12] MEDS ORDERED: methylPREDNISolone SOD SUCC/PF 62.5 MG/ML VIAL IVP ONE (01:15)
[2018-12-12] MEDS ORDERED: methylPREDNISolone SOD SUCC/PF 62.5 MG/ML VIAL IM ONE (01:45)
[2018-12-12 01:56] LABS: HEMATOCRIT 30.4 % (36-48); HEMOGLOBIN 9.7 g/dL (12.0-16.0); MEAN CORPUSCULAR VOLUME 96 fL (79.0-98.0); RED BLOOD CELL COUNT(AUTO) 3.15 MIL/uL (4.2-6.2); WHITE BLOOD COUNT (AUTO) 9.1 K/uL (4.8-10.8)
[2018-12-12 01:57] LABS: BASOPHILS # (AUTO) 0.2 K/uL (0.0-0.2); BASOPHILS % (AUTO) 2.2 % (0.0-2.0); EOSINOPHILS # (AUTO) 0.8 K/uL (0.0-0.4); EOSINOPHILS % (AUTO) 8.5 % (0.0-4.0); LYMPHOCYTES # (AUTO) 0.5 K/uL (1.0-5.5); MEAN CORPUSCULAR HEMOGLOBIN 31 pg (27-31); MEAN CORPUSCULAR HGB CONC 32 % (32-36); NEUTROPHILS # (AUTO) 6.6 K/uL (1.8-7.7); NEUTROPHILS % (AUTO) 75.3 % (40.0-70.0); PLATELET COUNT (AUTO) 196 K/uL (130-430); RED CELL DISTRIBUTION WIDTH 22.7 % (9.0-15.0)
[2018-12-12] MEDS ORDERED: AZITHROMYCIN 250 MG TABLET PO ONE (02:00)
[2018-12-12 02:02] LABS: CALCIUM 8.1 mg/dL (8.4-11.0); CREATININE 4.41 mg/dL (0.55-1.30)
[2018-12-12 02:07] LABS: ALBUMIN 2.5 g/dL (3.4-4.8); TOTAL BILIRUBIN 0.5 mg/dL (0.0-1.0)
[2018-12-12 04:00] VITALS: BP_SYST 153
== END 2018-12-12 03:58 | disposition home or self-care (01) ==
LOC: SED 01:02
DX: T82.49XA Other complication of vascular dialysis catheter, initial encounter (principal); J44.1 Chronic obstructive pulmonary disease with (acute) exacerbation; I12.9 Hypertensive chronic kidney disease with stage 1 through stage 4 chronic kidney disease, or unspecified chronic kidney disease; E11.22 Type 2 diabetes mellitus with diabetic chronic kidney disease; N18.9 Chronic kidney disease, unspecified; K21.9 Gastro-esophageal reflux disease without esophagitis; Z86.79 Personal history of other diseases of the circulatory system; Z99.2 Dependence on renal dialysis; Z88.0 Allergy status to penicillin; Z88.2 Allergy status to sulfonamides; Z79.82 Long term (current) use of aspirin; Z79.899 Other long term (current) drug therapy; Y92.89 Other specified places as the place of occurrence of the external cause
CPT/HCPCS: 36415; 71045; 71250; 80053; 83880; 85025; 94640; 96372; 99284; J2930; J7620; Q0144

== ENCOUNTER 2018-12-27 18:57 | Emergency (ER) | payer OTHER, MEDICAID ==
[~2018-12-27] VITALS: Ht 172.7 cm; Wt 62.6 kg
--- NOTE | 2018-12-27 19:02 | NUR ---
Patient to ER bed 4 to gown for evaluation. Side rails up. Report given to Ellyn BOWERS.
[2018-12-27 19:08] VITALS: BP_SYST 151
--- NOTE | 2018-12-27 19:10 | NUR ---
1910 - Pt BIBA from assisted living. Pt states she had dialysis yesterday but still having mild bleeding. A&OX4, vss. Awaiting MD mejias.
--- NOTE | 2018-12-27 19:40 | NUR ---
1940 - ER at bedside examining patient.
[2018-12-27] MEDS ORDERED: LIDOCAINE 1% 10 MG/ML, 20 ML MDV INJ ONE (20:00)
[2018-12-27] MEDS ORDERED: SILVER NITRATE APPLICATOR 1 STICK STICK..EA. TP ONE (20:16)
[2018-12-27 20:45] VITALS: BP_SYST 151
--- NOTE | 2018-12-27 20:45 | NUR ---
2045 - Patient given written and verbal discharge instructions and verbalizes understanding. ER MD discussed with patient the results and treatment provided. Patient in stable condition. ID arm band removed. Patient educated on pain management and to follow up with PMD. Opportunity for questions provided and answered. Medication side effect fact sheet provided.
== END 2018-12-27 20:45 | disposition home or self-care (01) ==
LOC: SED 18:57
DX: T82.838A Hemorrhage due to vascular prosthetic devices, implants and grafts, initial encounter (principal); J44.9 Chronic obstructive pulmonary disease, unspecified; K21.9 Gastro-esophageal reflux disease without esophagitis; I12.9 Hypertensive chronic kidney disease with stage 1 through stage 4 chronic kidney disease, or unspecified chronic kidney disease; E11.22 Type 2 diabetes mellitus with diabetic chronic kidney disease; N18.9 Chronic kidney disease, unspecified; Z99.2 Dependence on renal dialysis; Z88.0 Allergy status to penicillin; Z88.2 Allergy status to sulfonamides; Z79.82 Long term (current) use of aspirin; Z79.899 Other long term (current) drug therapy; X58.XXXA Exposure to other specified factors, initial encounter; Y93.89 Activity, other specified; Y92.89 Other specified places as the place of occurrence of the external cause; Y99.8 Other external cause status
CPT/HCPCS: 12001; 99283; J2001

== ENCOUNTER 2019-01-03 16:06 | Inpatient (IN) | payer OTHER, MEDICAID ==
[~2019-01-03] VITALS: Ht 172.7 cm; Wt 54.2 kg
[2019-01-03 16:06] VITALS: BP_SYST 164
[2019-01-03 16:38] LABS: BASOPHILS # (AUTO) 0.1 K/uL (0.0-0.2); BASOPHILS % (AUTO) 2.4 % (0.0-2.0); EOSINOPHILS # (AUTO) 0.2 K/uL (0.0-0.4); EOSINOPHILS % (AUTO) 4.3 % (0.0-4.0); HEMATOCRIT 35.8 % (36-48); HEMOGLOBIN 11.3 g/dL (12.0-16.0); LYMPHOCYTES # (AUTO) 0.4 K/uL (1.0-5.5); LYMPHOCYTES % (AUTO) 9.6 % (20.5-51.5); MEAN CORPUSCULAR HEMOGLOBIN 30 pg (27-31); MEAN CORPUSCULAR HGB CONC 32 % (32-36); MEAN CORPUSCULAR VOLUME 94 fL (79.0-98.0); MONOCYTES # (AUTO) 0.5 K/uL (0.0-1.0); MONOCYTES % (AUTO) 11.7 % (1.7-9.3); NEUTROPHILS # (AUTO) 3.1 K/uL (1.8-7.7); PLATELET COUNT (AUTO) 168 K/uL (130-430); RED CELL DISTRIBUTION WIDTH 20.9 % (9.0-15.0); WHITE BLOOD COUNT (AUTO) 4.3 K/uL (4.8-10.8)
[2019-01-03 17:02] LABS: PROTHROMBIN TIME 10.3 SECS (9.5-12.5)
[2019-01-03 17:12] LABS: ANION GAP 7 (5-15); CALCIUM 8.7 mg/dL (8.4-11.0); CHLORIDE 101 mmol/L (98-107); CREATININE 3.95 mg/dL (0.55-1.30); GFR AFRICAN AMERICAN 15 mL/min (>90); GLUCOSE 116 mg/dL (70-99); POTASSIUM 4.7 mmol/L (3.5-5.1); SODIUM SERUM 136 mmol/L (136-145); UREA NITROGEN, BLOOD 20 mg/dL (8-21)
[2019-01-03 17:28] LABS: ALBUMIN 2.5 g/dL (3.4-4.8); ASPARTATE AMINOTRANSFERASE 13 U/L (10-37); FREE T4 (FREE THYROXINE) 0.7 ng/dL (0.6-1.6); TOTAL BILIRUBIN 0.5 mg/dL (0.0-1.0)
[2019-01-03 17:31] LABS: BILIRUBIN,URINE NEGATIVE (NEGATIVE); CLARITY/URINE HAZY (CLEAR); COLOR,URINE YELLOW (YELLOW); GLUCOSE,URINE TRACE (NEGATIVE); KETONES,URINE NEGATIVE (NEGATIVE); LEUKOCYTE ESTERASE ,URINE 1+ (NEGATIVE); NITRITE, URINE NEGATIVE (NEGATIVE); PROTEIN URINE 3+ (NEGATIVE); UROBILINOGEN,URINE 0.2 (0.2-1.0)
[2019-01-03 17:32] LABS: BLOOD, URINE TRACE (NEGATIVE)
[2019-01-03 17:35] LABS: ALCOHOL, BLOOD < 3 mg/dL (<10)
[2019-01-03] MEDS ORDERED: ALBUTEROL SULFATE 0.083% 2.5 MG/3 ML VIAL.NEB INH ONE ×2 (17:44→17:45)
[2019-01-03 17:45] LABS: BACTERIA,URINE MODERATE /HPF (None Seen); RBC,URINE 0-3 /HPF (0-3); WBC,URINE 20-50 /HPF (0-3)
[2019-01-03 17:46] LABS: FINE GRANULAR CASTS,URINE 0-10 /LPF (None Seen); MUCUS,URINE None Seen /LPF (None Seen)
[2019-01-03 17:58] LABS: OPIATE, URINE POSITIVE (NEG <=100)
[2019-01-03 17:59] LABS: BARBITURATE, URINE NEGATIVE (NEG <=200); BENZODIAZEPINE, URINE NEGATIVE (NEG <=150); CANNABINOID, URINE NEGATIVE (NEG <=50); COCAINE, URINE NEGATIVE (NEG <=150); METHAMPHETAMINES SCREEN,URINE NEGATIVE (NEG <=500); PHENCYCLIDINE SCREEN,URINE NEGATIVE (NEG <=25); UR TRICYCLIC ANTIDEPRESSANTS NEGATIVE (NEG <=300); URINE AMPHETAMINE NEGATIVE (NEG <=500); URINE METHADONE NEGATIVE (NEG <=200); URINE OXYCODONE SCREEN NEGATIVE (NEG <=100); URINE PROPOXYPHENE SCREEN NEGATIVE (NEG <=300)
[2019-01-03 17:59] LABS: ALANINE AMINOTRANSFERASE 10 U/L (12-78)
[2019-01-03] MEDS ORDERED: NALOXONE HCL 2 MG/2 ML SYR IVP ONE (18:15)
[2019-01-03] MEDS ORDERED: LEVOFLOXACIN 500 MG/D5W 100 ML IV ONE (18:15)
[2019-01-03] MEDS ORDERED: CALC667T5 PO (19:26)
[2019-01-03] MEDS ORDERED: TRAZ-218 PO (19:26)
[2019-01-03] MEDS ORDERED: IPRA4AER INH (19:26)
[2019-01-03] MEDS ORDERED: LORA2TAB95 PO (19:26)
[2019-01-03 20:15] VITALS: BP_SYST 154
[2019-01-03 21:00] VITALS: BP_SYST 151
[2019-01-03] MEDS ORDERED: BISACODYL 5 MG TABLET.DR (DULCOLAX) PO PRN (21:00)
[2019-01-03] MEDS ORDERED: ALBUTEROL SULFATE 0.083% 2.5 MG/3 ML VIAL.NEB INH PRN (21:00)
[2019-01-03] MEDS ORDERED: cloNIDine HCL 0.2 MG TABLET PO PRN (21:00)
[2019-01-03] MEDS: PEG 400/HYPROMELLOSE/GLYCERIN 15 ML DROPS OP SCH (21:00)
[2019-01-03] MEDS: hydrALAZINE HCL 25 MG TABLET PO SCH (21:23)
[2019-01-03] MEDS: DOCUSATE SODIUM 100 MG CAPSULE PO SCH (21:23)
[2019-01-03] MEDS: ATORVASTATIN 20 MG TABLET PO SCH (21:24)
[2019-01-03 21:30] VITALS: BP_SYST 151
[2019-01-03 22:00] VITALS: BP_SYST 160
[2019-01-03 23:00] VITALS: BP_SYST 144
[2019-01-04] VITALS (17 sets, daily range): BP systolic 86–170
[2019-01-04 05:53] LABS: BASOPHILS # (AUTO) 0.1 K/uL (0.0-0.2); BASOPHILS % (AUTO) 1.5 % (0.0-2.0); EOSINOPHILS # (AUTO) 0.1 K/uL (0.0-0.4); HEMATOCRIT 34.1 % (36-48); HEMOGLOBIN 10.5 g/dL (12.0-16.0); LYMPHOCYTES # (AUTO) 0.4 K/uL (1.0-5.5); LYMPHOCYTES % (AUTO) 8.4 % (20.5-51.5); MEAN CORPUSCULAR HEMOGLOBIN 29 pg (27-31); MEAN CORPUSCULAR HGB CONC 31 % (32-36); MEAN CORPUSCULAR VOLUME 95 fL (79.0-98.0); MONOCYTES # (AUTO) 0.6 K/uL (0.0-1.0); MONOCYTES % (AUTO) 12.5 % (1.7-9.3); NEUTROPHILS # (AUTO) 3.7 K/uL (1.8-7.7); NEUTROPHILS % (AUTO) 74.6 % (40.0-70.0); PLATELET COUNT (AUTO) 164 K/uL (130-430); RED BLOOD CELL COUNT(AUTO) 3.59 MIL/uL (4.2-6.2); RED CELL DISTRIBUTION WIDTH 20.1 % (9.0-15.0); WHITE BLOOD COUNT (AUTO) 4.9 K/uL (4.8-10.8)
[2019-01-04 06:08] LABS: CALCIUM 8.1 mg/dL (8.4-11.0); CREATININE 4.43 mg/dL (0.55-1.30); POTASSIUM 4.9 mmol/L (3.5-5.1)
[2019-01-04] MEDS: PANTOPRAZOLE SODIUM 40 MG TAB PO SCH (06:30)
[2019-01-04] MEDS ORDERED: ONDANSETRON 4 MG ODT TAB PO PRN (08:00)
[2019-01-04] MEDS: VITAMIN B COMPLEX WITH C TAB/CAP PO SCH (09:00)
[2019-01-04] MEDS: ASPIRIN 81 MG TAB.CHEW PO SCH ×2 (09:00→09:16)
[2019-01-04] MEDS: PEG 400/HYPROMELLOSE/GLYCERIN 15 ML DROPS OP SCH ×2 (09:00→22:29)
[2019-01-04] MEDS: PARoxetine HCL 20 MG TABLET PO SCH (09:16)
[2019-01-04] MEDS: hydrALAZINE HCL 25 MG TABLET PO SCH ×3 (09:16→22:27)
[2019-01-04] MEDS: CARVEDILOL 25 MG TABLET (COREG) PO SCH ×2 (09:17→18:08)
[2019-01-04] MEDS: DOCUSATE SODIUM 100 MG CAPSULE PO SCH ×2 (09:18→21:50)
[2019-01-04] MEDS: amLODIPine BESYLATE 10 MG TABLET PO SCH (09:18)
[2019-01-04] MEDS: ACETAMINOPHEN 325 MG TABLET PO PRN (12:06)
[2019-01-04] MEDS ORDERED: GABAPENTIN 300 MG CAPSULE PO ONE (14:15)
[2019-01-04] MEDS: ATORVASTATIN 20 MG TABLET PO SCH (21:50)
[2019-01-05] MEDS: DIPHENHYDRAMINE HCL 25 MG CAPSULE PO PRN ×2 (00:08→16:27)
[2019-01-05 00:27] VITALS: BP_SYST 153
[2019-01-05] MEDS: PANTOPRAZOLE SODIUM 40 MG TAB PO SCH (06:41)
[2019-01-05 07:50] VITALS: BP_SYST 144
[2019-01-05] MEDS: CARVEDILOL 25 MG TABLET (COREG) PO SCH ×2 (08:00→17:25)
[2019-01-05] MEDS: VITAMIN B COMPLEX WITH C TAB/CAP PO SCH (09:00)
[2019-01-05] MEDS: amLODIPine BESYLATE 10 MG TABLET PO SCH (09:00)
[2019-01-05] MEDS: ASPIRIN 81 MG TAB.CHEW PO SCH ×2 (09:00→09:25)
[2019-01-05] MEDS: hydrALAZINE HCL 25 MG TABLET PO SCH ×3 (09:00→20:37)
[2019-01-05] MEDS: PARoxetine HCL 20 MG TABLET PO SCH (09:25)
[2019-01-05] MEDS: PEG 400/HYPROMELLOSE/GLYCERIN 15 ML DROPS OP SCH ×2 (09:26→22:24)
[2019-01-05] MEDS: DOCUSATE SODIUM 100 MG CAPSULE PO SCH ×2 (09:26→20:37)
[2019-01-05 12:21] VITALS: BP_SYST 137
[2019-01-05] MEDS: ACETAMINOPHEN 325 MG TABLET PO PRN ×2 (16:27→20:37)
[2019-01-05 16:36] VITALS: BP_SYST 130
[2019-01-05 20:00] VITALS: BP_SYST 145
[2019-01-05] MEDS ORDERED: GENTAMICIN 80 mg/100 mL NS 100 ML IV SCH (20:00)
[2019-01-05] MEDS: ATORVASTATIN 20 MG TABLET PO SCH (20:37)
[2019-01-06] MEDS: DIPHENHYDRAMINE HCL 25 MG CAPSULE PO PRN (01:11)
[2019-01-06 04:53] VITALS: BP_SYST 140
[2019-01-06] MEDS: PANTOPRAZOLE SODIUM 40 MG TAB PO SCH (06:28)
[2019-01-06 08:00] VITALS: BP_SYST 163
[2019-01-06] MEDS: ASPIRIN 81 MG TAB.CHEW PO SCH (08:39)
[2019-01-06] MEDS: DOCUSATE SODIUM 100 MG CAPSULE PO SCH (08:39)
[2019-01-06] MEDS: CARVEDILOL 25 MG TABLET (COREG) PO SCH (08:40)
[2019-01-06] MEDS: PARoxetine HCL 20 MG TABLET PO SCH (08:40)
[2019-01-06] MEDS: hydrALAZINE HCL 25 MG TABLET PO SCH ×2 (08:40→14:47)
[2019-01-06] MEDS: amLODIPine BESYLATE 10 MG TABLET PO SCH (08:41)
[2019-01-06] MEDS: VITAMIN B COMPLEX WITH C TAB/CAP PO SCH (08:41)
[2019-01-06] MEDS: PEG 400/HYPROMELLOSE/GLYCERIN 15 ML DROPS OP SCH (08:41)
[2019-01-06 11:40] VITALS: BP_SYST 163
[2019-01-06 12:35] VITALS: BP_SYST 144
[2019-01-06 14:31] VITALS: BP_SYST 144
== END 2019-01-06 16:15 | disposition home or self-care (01) | DRG 689 ==
LOC: SED 16:06 → SIC 19:27 → STU 01-04 16:49 → SMU 01-05 15:33
PROVIDERS: ADMIT Family Medicine; ATTEND Family Medicine
DX: N39.0 Urinary tract infection, site not specified (principal); G93.41 Metabolic encephalopathy; E43 Unspecified severe protein-calorie malnutrition; N18.6 End stage renal disease; I13.2 Hypertensive heart and chronic kidney disease with heart failure and with stage 5 chronic kidney disease, or end stage renal disease; Z68.1 Body mass index [BMI] 19.9 or less, adult; D64.9 Anemia, unspecified; E11.22 Type 2 diabetes mellitus with diabetic chronic kidney disease; E11.51 Type 2 diabetes mellitus with diabetic peripheral angiopathy without gangrene; I50.9 Heart failure, unspecified; F17.200 Nicotine dependence, unspecified, uncomplicated; J44.9 Chronic obstructive pulmonary disease, unspecified; Z89.511 Acquired absence of right leg below knee; Z99.2 Dependence on renal dialysis; Z88.0 Allergy status to penicillin; Z88.2 Allergy status to sulfonamides; Z79.82 Long term (current) use of aspirin; Z79.899 Other long term (current) drug therapy; Z79.51 Long term (current) use of inhaled steroids
CPT/HCPCS: 36415; 36600; 70450-TC; 71045; 74018; 80048; 80053; 80307; 81000-TC; 82140-TC; 82803-TC; 82962; 83605; 83880; 84439; 84484; 85025; 85610-TC; 87040-TC; 87081; 87086; 90935; 93005; 94640; 99285; G0378; G0482; J1580; J1956; J2310; J7060; J7613; Q0162; Q0163

== ENCOUNTER 2019-01-28 22:35 | Emergency (ER) | payer OTHER, MEDICAID ==
[~2019-01-28] VITALS: Ht 172.7 cm; Wt 54.4 kg
[2019-01-28 22:35] VITALS: BP_SYST 128
[~2019-01-28 22:35] MED LIST changes: +CALC667T5 PO; +IPRA4AER INH; +LORA2TAB95 PO; +TRAZ-218 PO
--- NOTE | 2019-01-28 22:35 | NUR ---
Patient to ER bed 2 for evaluation. Side rails up. Report given to Ann.
--- NOTE | 2019-01-28 22:40 | NUR ---
Pt is alert and oriented. Pt was brought in by ambulance for evaluation of head laceration and skin tear to the left arm status post mechanical fall today. Patient also complains of generalized back pain. Pain stated 04/18. Denies any neck pain, LOC, neck trauma, N/V/D. No signs of SOB or acute distress noted at this time. Will continue to monitor.
--- NOTE | 2019-01-28 22:45 | NUR ---
ER MD KO AT BEDSIDE EXAMINING PATIENT.
[2019-01-28] MEDS ORDERED: LIDOCAINE 1% 10 MG/ML, 20 ML MDV IJ ONE (23:30)
[2019-01-28] MEDS ORDERED: LIDOCAINE 1%, 20 ML MDV 20 ML ONE (23:35)
--- NOTE | 2019-01-29 00:20 | NUR ---
Laceration cleansed with NS. Dr. Givens at bedside administering Lidocaine locally to upper parietal area and using 6 olivia to close the laceration. Pressure dressing applied to area. Bleeding controlled. Pt tolerated procedure well. Will continue to monitor.
[2019-01-29] MEDS ORDERED: MORPHINE 4 MG/ML INJ. SYRINGE IM ONE (00:30)
[2019-01-29] MEDS ORDERED: DIPHENHYDRAMINE INJ 50 MG/ML VIAL IM ONE (00:30)
[2019-01-29] MEDS ORDERED: LIDOCAINE/EPI 1% 1:100000 20 ML VIAL IJ ONE (01:45)
--- NOTE | 2019-01-29 01:55 | NUR ---
Patient has a 4 cm laceration to HEAD. Dr. KO applied sutures using sterile technique. Edges well approximated. Site cleansed with STERILE WATER. Dressing of GAUZE applied to site. No bleeding noted. Pt tolerated well.
--- NOTE | 2019-01-29 02:45 | NUR ---
With pt and radiologly tech to CT scan.
[2019-01-29 03:19] LABS: BASOPHILS # (AUTO) 0.2 K/uL (0.0-0.2); BASOPHILS % (AUTO) 1.7 % (0.0-2.0); EOSINOPHILS # (AUTO) 0.3 K/uL (0.0-0.4); EOSINOPHILS % (AUTO) 3.2 % (0.0-4.0); HEMATOCRIT 32.3 % (36-48); LYMPHOCYTES # (AUTO) 0.5 K/uL (1.0-5.5); LYMPHOCYTES % (AUTO) 5.2 % (20.5-51.5); MEAN CORPUSCULAR HEMOGLOBIN 29 pg (27-31); MEAN CORPUSCULAR HGB CONC 31 % (32-36); MEAN CORPUSCULAR VOLUME 92 fL (79.0-98.0); MONOCYTES % (AUTO) 10.6 % (1.7-9.3); NEUTROPHILS # (AUTO) 7.6 K/uL (1.8-7.7); NEUTROPHILS % (AUTO) 79.3 % (40.0-70.0); PLATELET COUNT (AUTO) 155 K/uL (130-430); RED CELL DISTRIBUTION WIDTH 21.8 % (9.0-15.0); WHITE BLOOD COUNT (AUTO) 9.6 K/uL (4.8-10.8)
[2019-01-29 03:34] LABS: INR 1.1 (0.8-1.2)
[2019-01-29 04:00] VITALS: BP_SYST 125
--- NOTE | 2019-01-29 04:00 | NUR ---
Patient given written and verbal discharge instructions and verbalizes understanding. ER MD KO discussed with patient the results and treatment provided. Patient in stable condition. ID arm band removed. Patient educated on pain management and to follow up with PMD. Pain Scale 0/10. Opportunity for questions provided and answered. Medication side effect fact sheet provided.
[2019-02-09] MEDS ORDERED: GABA-529 PO (13:13)
[2019-02-09] MEDS ORDERED: LIP10 PO (13:13)
[2019-02-09] MEDS ORDERED: CAT.1 PO (13:13)
[2019-02-09] MEDS ORDERED: WELSR150 PO (13:13)
[2019-02-09] MEDS ORDERED: HYDR-4037 PO (13:13)
== END 2019-01-29 04:00 | disposition home or self-care (01) ==
LOC: SED 22:35
DX: S01.01XA Laceration without foreign body of scalp, initial encounter (principal); S51.012A Laceration without foreign body of left elbow, initial encounter; D64.9 Anemia, unspecified; I12.0 Hypertensive chronic kidney disease with stage 5 chronic kidney disease or end stage renal disease; E11.22 Type 2 diabetes mellitus with diabetic chronic kidney disease; N18.6 End stage renal disease; J44.9 Chronic obstructive pulmonary disease, unspecified; K21.9 Gastro-esophageal reflux disease without esophagitis; Z99.2 Dependence on renal dialysis; Z88.0 Allergy status to penicillin; Z88.2 Allergy status to sulfonamides; Z79.899 Other long term (current) drug therapy; Z79.82 Long term (current) use of aspirin; W22.8XXA Striking against or struck by other objects, initial encounter; Y93.89 Activity, other specified; Y92.89 Other specified places as the place of occurrence of the external cause; Y99.8 Other external cause status
CPT/HCPCS: 12002; 36415; 70450; 85025; 85610; 85730; 96372; 99284; J1200; J2001; J2270

== ENCOUNTER 2019-01-30 17:46 | Emergency (ER) | payer OTHER, MEDICAID ==
[~2019-01-30] VITALS: Ht 154.9 cm; Wt 59.0 kg
[2019-01-30 17:53] VITALS: BP_SYST 161
[2019-01-30] MEDS ORDERED: NACL 0.9% 1,000 ML IV ONE (18:45)
[2019-01-30 19:19] LABS: BASOPHILS # (AUTO) 0.2 K/uL (0.0-0.2); BASOPHILS % (AUTO) 2.6 % (0.0-2.0); EOSINOPHILS % (AUTO) 0.3 % (0.0-4.0); HEMATOCRIT 33.5 % (36-48); HEMOGLOBIN 10.4 g/dL (12.0-16.0); LYMPHOCYTES # (AUTO) 0.3 K/uL (1.0-5.5); LYMPHOCYTES % (AUTO) 5.1 % (20.5-51.5); MEAN CORPUSCULAR HEMOGLOBIN 29 pg (27-31); MEAN CORPUSCULAR HGB CONC 31 % (32-36); MEAN CORPUSCULAR VOLUME 93 fL (79.0-98.0); MONOCYTES # (AUTO) 0.5 K/uL (0.0-1.0); MONOCYTES % (AUTO) 8.1 % (1.7-9.3); NEUTROPHILS # (AUTO) 5.4 K/uL (1.8-7.7); NEUTROPHILS % (AUTO) 83.9 % (40.0-70.0); PLATELET COUNT (AUTO) 136 K/uL (130-430); RED BLOOD CELL COUNT(AUTO) 3.59 MIL/uL (4.2-6.2); RED CELL DISTRIBUTION WIDTH 21.7 % (9.0-15.0); WHITE BLOOD COUNT (AUTO) 6.4 K/uL (4.8-10.8)
[2019-01-30 19:23] LABS: CALCIUM 8.8 mg/dL (8.4-11.0); CREATININE 3.05 mg/dL (0.55-1.30); POTASSIUM 4.5 mmol/L (3.5-5.1)
[2019-01-30 19:28] LABS: ALBUMIN 2.8 g/dL (3.4-4.8); PROTHROMBIN TIME 10.1 SECS (9.5-12.5); TOTAL BILIRUBIN 0.5 mg/dL (0.0-1.0)
[2019-01-30 22:00] VITALS: BP_SYST 171
[2019-02-09] MEDS ORDERED: HYDR-4037 PO (13:13)
[2019-02-09] MEDS ORDERED: GABA-529 PO (13:13)
[2019-02-09] MEDS ORDERED: CAT.1 PO (13:13)
[2019-02-09] MEDS ORDERED: LIP10 PO (13:13)
[2019-02-09] MEDS ORDERED: WELSR150 PO (13:13)
== END 2019-01-30 22:10 | disposition home or self-care (01) ==
LOC: SED 17:46
DX: S01.01XD Laceration without foreign body of scalp, subsequent encounter (principal); R53.1 Weakness; R53.83 Other fatigue; J44.9 Chronic obstructive pulmonary disease, unspecified; K21.9 Gastro-esophageal reflux disease without esophagitis; I12.9 Hypertensive chronic kidney disease with stage 1 through stage 4 chronic kidney disease, or unspecified chronic kidney disease; E11.22 Type 2 diabetes mellitus with diabetic chronic kidney disease; N18.9 Chronic kidney disease, unspecified; Z86.79 Personal history of other diseases of the circulatory system; Z99.2 Dependence on renal dialysis; Z88.0 Allergy status to penicillin; Z88.2 Allergy status to sulfonamides; Z79.899 Other long term (current) drug therapy; W06.XXXD Fall from bed, subsequent encounter
CPT/HCPCS: 36415; 71045; 80053; 83605; 84484; 85025; 85610; 85730; 87040; 93005; 99284; G0482; J7030

== ENCOUNTER 2019-02-13 16:05 | Emergency (ER) | payer OTHER, MEDICAID ==
[~2019-02-13] VITALS: Ht 172.7 cm; Wt 49.9 kg
[~2019-02-13 16:05] MED LIST changes: -BISA-79 PO; -CALC667T5 PO; -CAT.2 PO; -DEXT30DR6 EACH EYE; -DIPH25CA83 PO; -DOCU-144 PO; -EPOE20005 SQ; -FAMO1TAB29 PO; -FERR210T PO; +GABA-529 PO; -HYDR-1189 PO; +HYDR-4037 PO; -HYDR-4039 PO; -HYDR-4100 PO; -IPRA4AER INH; +LIP10 PO; -LIP40 PO; -LORA2TAB95 PO; -NEU300 PO; -NOR10 PO; -ONDA4TAB22 PO; -POLY15DR56 OP; -TRAZ-218 PO; -VITA1TAB25 PO; +WELSR150 PO; -ZOLP5TAB2 PO; -[UNRECOGNIZED DRUG - CODE] PO
[2019-02-13 16:07] VITALS: BP_SYST 173
[2019-02-13] MEDS ORDERED: MORPHINE 4 MG/ML INJ. SYRINGE IVP ONE (16:30)
[2019-02-13 16:44] LABS: BASOPHILS # (AUTO) 0.1 K/uL (0.0-0.2); BASOPHILS % (AUTO) 1.9 % (0.0-2.0); EOSINOPHILS # (AUTO) 0.1 K/uL (0.0-0.4); EOSINOPHILS % (AUTO) 1.5 % (0.0-4.0); HEMATOCRIT 32.4 % (36-48); HEMOGLOBIN 10.6 g/dL (12.0-16.0); LYMPHOCYTES # (AUTO) 0.5 K/uL (1.0-5.5); LYMPHOCYTES % (AUTO) 7.3 % (20.5-51.5); MEAN CORPUSCULAR HEMOGLOBIN 29 pg (27-31); MEAN CORPUSCULAR HGB CONC 33 % (32-36); MONOCYTES # (AUTO) 0.7 K/uL (0.0-1.0); MONOCYTES % (AUTO) 9.8 % (1.7-9.3); NEUTROPHILS # (AUTO) 5.5 K/uL (1.8-7.7); NEUTROPHILS % (AUTO) 79.5 % (40.0-70.0); PLATELET COUNT (AUTO) 274 K/uL (130-430); RED BLOOD CELL COUNT(AUTO) 3.69 MIL/uL (4.2-6.2); WHITE BLOOD COUNT (AUTO) 6.9 K/uL (4.8-10.8)
[2019-02-13 16:53] LABS: CALCIUM 8.8 mg/dL (8.4-11.0); CREATININE 3.59 mg/dL (0.55-1.30); POTASSIUM 4.2 mmol/L (3.5-5.1)
[2019-02-13 16:56] LABS: MEAN CORPUSCULAR VOLUME 88 fL (79.0-98.0)
[2019-02-13 16:58] LABS: ALBUMIN 2.1 g/dL (3.4-4.8); TOTAL BILIRUBIN 0.6 mg/dL (0.0-1.0)
[2019-02-13] MEDS ORDERED: LACTULOSE 20 GM/30 ML UDC PO ONE (17:15)
[2019-02-13] MEDS ORDERED: LEVOFLOXACIN 500 MG TABLET PO ONE (17:30)
[2019-02-13] MEDS ORDERED: hydrALAZINE HCL 20 MG/ML VIAL IVP ONE (18:30)
[2019-02-13 18:35] VITALS: BP_SYST 156
[2019-02-13] MEDS ORDERED: hydrALAZINE HCL 20 MG/ML VIAL ONE (18:40)
[2019-02-14] MEDS ORDERED: HYDR-4272 PO (16:04)
[2019-02-14] MEDS ORDERED: AMLO10TA88 PO (16:04)
[2019-02-14] MEDS ORDERED: CALC667T5 PO (16:04)
== END 2019-02-13 18:35 | disposition home or self-care (01) ==
LOC: SED 16:05
DX: I13.2 Hypertensive heart and chronic kidney disease with heart failure and with stage 5 chronic kidney disease, or end stage renal disease (principal); E11.22 Type 2 diabetes mellitus with diabetic chronic kidney disease; N18.6 End stage renal disease; I50.9 Heart failure, unspecified; J18.9 Pneumonia, unspecified organism; K59.00 Constipation, unspecified; D64.9 Anemia, unspecified; J44.9 Chronic obstructive pulmonary disease, unspecified; K21.9 Gastro-esophageal reflux disease without esophagitis; Z99.2 Dependence on renal dialysis; Z88.0 Allergy status to penicillin; Z88.1 Allergy status to other antibiotic agents; Z79.82 Long term (current) use of aspirin; Z79.899 Other long term (current) drug therapy; Z89.512 Acquired absence of left leg below knee; Z89.511 Acquired absence of right leg below knee
CPT/HCPCS: 36415; 71045; 74176; 80053; 83605; 83880; 84484; 85025; 87040; 93005; 96374; 99284; J0360; J2270

== ENCOUNTER 2019-02-14 12:19 | Inpatient (IN) | payer OTHER, MEDICAID ==
[~2019-02-14] VITALS: Ht 162.6 cm; Wt 44.3 kg
[2019-02-14 12:30] VITALS: BP_SYST 195
[2019-02-14 12:54] LABS: BASOPHILS # (AUTO) 0.1 K/uL (0.0-0.2); BASOPHILS % (AUTO) 1.6 % (0.0-2.0); EOSINOPHILS # (AUTO) 0.1 K/uL (0.0-0.4); EOSINOPHILS % (AUTO) 1.2 % (0.0-4.0); HEMATOCRIT 33.6 % (36-48); HEMOGLOBIN 10.9 g/dL (12.0-16.0); LYMPHOCYTES # (AUTO) 0.7 K/uL (1.0-5.5); LYMPHOCYTES % (AUTO) 7.9 % (20.5-51.5); MEAN CORPUSCULAR HEMOGLOBIN 29 pg (27-31); MEAN CORPUSCULAR HGB CONC 33 % (32-36); MEAN CORPUSCULAR VOLUME 88 fL (79.0-98.0); MONOCYTES # (AUTO) 0.6 K/uL (0.0-1.0); MONOCYTES % (AUTO) 7.3 % (1.7-9.3); NEUTROPHILS # (AUTO) 7.1 K/uL (1.8-7.7); PLATELET COUNT (AUTO) 296 K/uL (130-430); RED BLOOD CELL COUNT(AUTO) 3.81 MIL/uL (4.2-6.2); RED CELL DISTRIBUTION WIDTH 18.2 % (9.0-15.0); WHITE BLOOD COUNT (AUTO) 8.6 K/uL (4.8-10.8)
[2019-02-14] MEDS ORDERED: ONDANSETRON 4 MG ODT TAB PO ONE (13:00)
[2019-02-14] MEDS ORDERED: MORPHINE SULFATE 10 MG/ML VIAL IM ONE (13:00)
[2019-02-14 13:09] LABS: CALCIUM 9.1 mg/dL (8.4-11.0); CREATININE 4.51 mg/dL (0.55-1.30); POTASSIUM 5.4 mmol/L (3.5-5.1)
[2019-02-14 13:14] LABS: ALBUMIN 2.2 g/dL (3.4-4.8); TOTAL BILIRUBIN 0.6 mg/dL (0.0-1.0)
[2019-02-14] MEDS ORDERED: CALC667T5 PO (16:04)
[2019-02-14] MEDS ORDERED: HYDR-4272 PO (16:04)
[2019-02-14] MEDS ORDERED: AMLO10TA88 PO (16:04)
[2019-02-14] MEDS ORDERED: MORPHINE 4 MG/ML INJ. SYRINGE IVP ONE (16:15)
[2019-02-14] MEDS ORDERED: ALBUTEROL SULFATE 0.083% 2.5 MG/3 ML VIAL.NEB INH PRN (17:15)
[2019-02-14 17:24] VITALS: BP_SYST 130
[2019-02-14 17:40] VITALS: BP_SYST 119
[2019-02-14] MEDS ORDERED: LEVOFLOXACIN 500 MG/D5W 100 ML IV SCH (18:00)
[2019-02-14] MEDS ORDERED: DIPHENHYDRAMINE INJ 50 MG/ML VIAL IVP SCH (18:00)
[2019-02-14 20:00] VITALS: BP_SYST 85
[2019-02-14] MEDS ORDERED: buPROPion HCL 150 MG TABLET.SA PO SCH (21:00)
[2019-02-14] MEDS: hydrALAZINE HCL 10 MG TABLET PO SCH (21:00)
[2019-02-14] MEDS: CARVEDILOL 25 MG TABLET (COREG) PO SCH (21:00)
[2019-02-14] MEDS: DIPHENHYDRAMINE HCL 50 MG CAPSULE PO PRN (21:13)
[2019-02-14] MEDS: ATORVASTATIN 10 MG TABLET PO SCH (21:13)
[2019-02-14] MEDS: buPROPion HCL 100 MG TABLET.SA PO SCH (21:13)
[2019-02-14] MEDS: PANTOPRAZOLE SODIUM 40 MG TAB PO SCH (21:13)
[2019-02-14] MEDS: GABAPENTIN 100 MG CAPSULE PO SCH (21:13)
[2019-02-14] MEDS ORDERED: LEVOFLOXACIN 500 MG/D5W 100 ML IV ONE (22:56)
[2019-02-15 00:57] VITALS: BP_SYST 115
[2019-02-15] MEDS: HYDROcodone/ACETAMIN 5-325 MG TAB (NORCO/ VICODIN) PO SCH ×3 (01:19→21:59)
[2019-02-15] MEDS: DIPHENHYDRAMINE HCL 50 MG CAPSULE PO PRN ×2 (06:35→12:35)
[2019-02-15 06:43] LABS: BASOPHILS # (AUTO) 0.2 K/uL (0.0-0.2); EOSINOPHILS # (AUTO) 0.2 K/uL (0.0-0.4); EOSINOPHILS % (AUTO) 3.5 % (0.0-4.0); HEMATOCRIT 29.2 % (36-48); HEMOGLOBIN 9.4 g/dL (12.0-16.0); LYMPHOCYTES # (AUTO) 0.6 K/uL (1.0-5.5); LYMPHOCYTES % (AUTO) 12.3 % (20.5-51.5); MEAN CORPUSCULAR HEMOGLOBIN 29 pg (27-31); MEAN CORPUSCULAR HGB CONC 32 % (32-36); MEAN CORPUSCULAR VOLUME 90 fL (79.0-98.0); MONOCYTES # (AUTO) 0.7 K/uL (0.0-1.0); MONOCYTES % (AUTO) 13.5 % (1.7-9.3); NEUTROPHILS # (AUTO) 3.3 K/uL (1.8-7.7); NEUTROPHILS % (AUTO) 66.7 % (40.0-70.0); PLATELET COUNT (AUTO) 257 K/uL (130-430); RED BLOOD CELL COUNT(AUTO) 3.27 MIL/uL (4.2-6.2); RED CELL DISTRIBUTION WIDTH 18.2 % (9.0-15.0); WHITE BLOOD COUNT (AUTO) 4.9 K/uL (4.8-10.8)
[2019-02-15 07:00] LABS: CALCIUM 8.4 mg/dL (8.4-11.0); CREATININE 2.72 mg/dL (0.55-1.30); POTASSIUM 3.1 mmol/L (3.5-5.1)
[2019-02-15 08:00] VITALS: BP_SYST 134
[2019-02-15] MEDS: CALCIUM ACETATE 667 MG CAP PO SCH ×3 (08:44→17:20)
[2019-02-15] MEDS: CARVEDILOL 25 MG TABLET (COREG) PO SCH ×2 (08:44→21:00)
[2019-02-15] MEDS: buPROPion HCL 100 MG TABLET.SA PO SCH ×2 (08:44→21:13)
[2019-02-15] MEDS: GABAPENTIN 100 MG CAPSULE PO SCH ×2 (08:44→21:12)
[2019-02-15] MEDS: PANTOPRAZOLE SODIUM 40 MG TAB PO SCH ×2 (08:45→21:12)
[2019-02-15] MEDS: PARoxetine HCL 20 MG TABLET PO SCH (08:45)
[2019-02-15] MEDS: hydrALAZINE HCL 10 MG TABLET PO SCH ×3 (08:45→21:00)
[2019-02-15] MEDS: amLODIPine BESYLATE 10 MG TABLET PO SCH (08:45)
[2019-02-15 11:22] VITALS: BP_SYST 120
[2019-02-15] MEDS ORDERED: POTASSIUM CHLORIDE 20 MEQ TAB.PRT.SR PO ONE (16:15)
[2019-02-15 16:30] VITALS: BP_SYST 137
[2019-02-15] MEDS: ATORVASTATIN 10 MG TABLET PO SCH (21:11)
[2019-02-15] MEDS: DOXYCYCLINE HYCLATE 100 MG CAPSULE PO SCH (21:12)
[2019-02-15] MEDS: DIPHENHYDRAMINE INJ 50 MG/ML VIAL IVP PRN (22:01)
[2019-02-16 01:58] VITALS: BP_SYST 144
[2019-02-16 06:49] LABS: BASOPHILS # (AUTO) 0.1 K/uL (0.0-0.2); BASOPHILS % (AUTO) 1.2 % (0.0-2.0); EOSINOPHILS # (AUTO) 0.3 K/uL (0.0-0.4); EOSINOPHILS % (AUTO) 5.8 % (0.0-4.0); HEMATOCRIT 26.3 % (36-48); HEMOGLOBIN 8.6 g/dL (12.0-16.0); LYMPHOCYTES # (AUTO) 0.9 K/uL (1.0-5.5); LYMPHOCYTES % (AUTO) 17.4 % (20.5-51.5); MEAN CORPUSCULAR HEMOGLOBIN 29 pg (27-31); MEAN CORPUSCULAR HGB CONC 33 % (32-36); MEAN CORPUSCULAR VOLUME 90 fL (79.0-98.0); MONOCYTES % (AUTO) 18.5 % (1.7-9.3); NEUTROPHILS % (AUTO) 57.1 % (40.0-70.0); PLATELET COUNT (AUTO) 242 K/uL (130-430); RED BLOOD CELL COUNT(AUTO) 2.92 MIL/uL (4.2-6.2); RED CELL DISTRIBUTION WIDTH 18.5 % (9.0-15.0); WHITE BLOOD COUNT (AUTO) 5.3 K/uL (4.8-10.8)
[2019-02-16 06:58] LABS: CALCIUM 8.6 mg/dL (8.4-11.0); CREATININE 3.94 mg/dL (0.55-1.30); POTASSIUM 4.1 mmol/L (3.5-5.1)
[2019-02-16 08:00] VITALS: BP_SYST 124
[2019-02-16] MEDS: GABAPENTIN 100 MG CAPSULE PO SCH ×2 (08:32→22:25)
[2019-02-16] MEDS: DOXYCYCLINE HYCLATE 100 MG CAPSULE PO SCH ×2 (08:32→22:23)
[2019-02-16] MEDS: hydrALAZINE HCL 10 MG TABLET PO SCH ×3 (08:32→22:22)
[2019-02-16] MEDS: CALCIUM ACETATE 667 MG CAP PO SCH ×3 (08:33→17:34)
[2019-02-16] MEDS: PANTOPRAZOLE SODIUM 40 MG TAB PO SCH ×2 (08:33→22:23)
[2019-02-16] MEDS: CARVEDILOL 25 MG TABLET (COREG) PO SCH ×2 (08:33→22:25)
[2019-02-16] MEDS: amLODIPine BESYLATE 10 MG TABLET PO SCH (08:33)
[2019-02-16] MEDS: PARoxetine HCL 20 MG TABLET PO SCH (08:33)
[2019-02-16] MEDS: DIPHENHYDRAMINE INJ 50 MG/ML VIAL IVP PRN ×2 (08:42→17:34)
[2019-02-16] MEDS: buPROPion HCL 100 MG TABLET.SA PO SCH ×2 (08:42→22:24)
[2019-02-16 12:14] VITALS: BP_SYST 136
[2019-02-16 16:21] VITALS: BP_SYST 116
[2019-02-16] MEDS: BALSAM PERU/CASTOR OIL 60 GM OINT...G. TP SCH (17:34)
[2019-02-16] MEDS ORDERED: VANCOMYCIN HCL 750 MG in NS 250 ML IV SCH (18:00)
[2019-02-16] MEDS ORDERED: LEVOFLOXACIN 500 MG/D5W 100 ML IV SCH (18:00)
[2019-02-16 20:00] VITALS: BP_SYST 145
[2019-02-16] MEDS: ATORVASTATIN 10 MG TABLET PO SCH (22:24)
[2019-02-16] MEDS: HYDROcodone/ACETAMIN 5-325 MG TAB (NORCO/ VICODIN) PO SCH (22:24)
[2019-02-17 01:15] VITALS: BP_SYST 146
[2019-02-17 08:30] VITALS: BP_SYST 141
[2019-02-17] MEDS: hydrALAZINE HCL 10 MG TABLET PO SCH ×3 (08:53→20:46)
[2019-02-17] MEDS: CARVEDILOL 25 MG TABLET (COREG) PO SCH ×2 (08:54→20:46)
[2019-02-17] MEDS: PARoxetine HCL 20 MG TABLET PO SCH (08:55)
[2019-02-17] MEDS: CALCIUM ACETATE 667 MG CAP PO SCH ×3 (08:55→16:48)
[2019-02-17] MEDS: buPROPion HCL 100 MG TABLET.SA PO SCH ×2 (08:55→20:45)
[2019-02-17] MEDS: DOXYCYCLINE HYCLATE 100 MG CAPSULE PO SCH ×2 (08:55→20:45)
[2019-02-17] MEDS: PANTOPRAZOLE SODIUM 40 MG TAB PO SCH ×2 (08:55→20:45)
[2019-02-17] MEDS: GABAPENTIN 100 MG CAPSULE PO SCH ×2 (08:55→20:45)
[2019-02-17] MEDS: amLODIPine BESYLATE 10 MG TABLET PO SCH (08:56)
[2019-02-17 12:09] VITALS: BP_SYST 109
[2019-02-17] MEDS: DIPHENHYDRAMINE INJ 50 MG/ML VIAL IVP PRN (12:49)
[2019-02-17 13:00] VITALS: BP_SYST 109
[2019-02-17 16:38] VITALS: BP_SYST 111
[2019-02-17] MEDS: BALSAM PERU/CASTOR OIL 60 GM OINT...G. TP SCH (16:46)
[2019-02-17] MEDS ORDERED: DOXY100T2 PO (18:25)
[2019-02-17 19:57] VITALS: BP_SYST 155
[2019-02-17] MEDS: ATORVASTATIN 10 MG TABLET PO SCH (20:45)
== END 2019-02-17 20:58 | disposition home or self-care (01) | DRG 602 ==
LOC: SED 12:19 → SMU 16:00
PROVIDERS: ADMIT Internal Medicine; ATTEND Internal Medicine
PROC: 5A1D70Z Performance of Urinary Filtration, Intermittent, Less than 6 Hours Per Day (ICD-10-PCS; principal; 2019-02-14)
PROC: 5A1D70Z Performance of Urinary Filtration, Intermittent, Less than 6 Hours Per Day (ICD-10-PCS; 2019-02-16)
DX: L03.032 Cellulitis of left toe (principal); J18.9 Pneumonia, unspecified organism; N18.6 End stage renal disease; J15.9 Unspecified bacterial pneumonia; I13.2 Hypertensive heart and chronic kidney disease with heart failure and with stage 5 chronic kidney disease, or end stage renal disease; J44.0 Chronic obstructive pulmonary disease with (acute) lower respiratory infection; Z99.2 Dependence on renal dialysis; F41.9 Anxiety disorder, unspecified; E78.5 Hyperlipidemia, unspecified; D64.9 Anemia, unspecified; E11.22 Type 2 diabetes mellitus with diabetic chronic kidney disease; E11.51 Type 2 diabetes mellitus with diabetic peripheral angiopathy without gangrene; I50.9 Heart failure, unspecified; K21.9 Gastro-esophageal reflux disease without esophagitis; E87.5 Hyperkalemia; R09.02 Hypoxemia; Z89.611 Acquired absence of right leg above knee; F32.9 Major depressive disorder, single episode, unspecified; Z88.0 Allergy status to penicillin; Z88.2 Allergy status to sulfonamides; Z79.899 Other long term (current) drug therapy; Z87.891 Personal history of nicotine dependence
CPT/HCPCS: 36415; 71045; 80048; 80053; 83036; 83605; 83880; 84100-TC; 84484; 85025; 87081; 90935; 90937; 93005; 93923; 96372; 96374; 99285; J1200; J1956; J2270; J3370; J7030; J7050; Q0162; Q0163

== ENCOUNTER 2019-02-23 20:53 | Inpatient (IN) | payer OTHER, MEDICAID ==
[~2019-02-23] VITALS: Ht 172.7 cm; Wt 49.9 kg
[2019-02-23 20:53] VITALS: BP_SYST 206
[~2019-02-23 20:53] MED LIST changes: -ACET-2165 PO; +AMLO10TA88 PO; -ASPI-1155 PO; +CALC667T5 PO; -CETI10CA PO; +DOXY100T2 PO; +HYDR-4272 PO
[2019-02-23] MEDS ORDERED: MAG HYDROX/AL HYDROX/SIMETH 30 ML, DICYCLOMINE HCL 20 MG, LIDOCAINE VISCOUS 2% 15ML (PO... PO ONE ×3 (21:45)
[2019-02-23] MEDS ORDERED: MORPHINE 4 MG/ML INJ. SYRINGE IVP ONE (21:45)
[2019-02-23] MEDS ORDERED: PANTOPRAZOLE SODIUM 40 MG/VIAL (PROTONIX) IVP ONE (21:45)
[2019-02-23 22:34] LABS: BASOPHILS # (AUTO) 0.2 K/uL (0.0-0.2); BASOPHILS % (AUTO) 2.4 % (0.0-2.0); EOSINOPHILS # (AUTO) 0.1 K/uL (0.0-0.4); EOSINOPHILS % (AUTO) 1.4 % (0.0-4.0); HEMATOCRIT 28.7 % (36-48); HEMOGLOBIN 9.3 g/dL (12.0-16.0); LYMPHOCYTES # (AUTO) 0.7 K/uL (1.0-5.5); LYMPHOCYTES % (AUTO) 10.6 % (20.5-51.5); MEAN CORPUSCULAR HEMOGLOBIN 29 pg (27-31); MEAN CORPUSCULAR HGB CONC 33 % (32-36); MEAN CORPUSCULAR VOLUME 89 fL (79.0-98.0); MONOCYTES # (AUTO) 0.7 K/uL (0.0-1.0); MONOCYTES % (AUTO) 11.1 % (1.7-9.3); NEUTROPHILS # (AUTO) 4.9 K/uL (1.8-7.7); NEUTROPHILS % (AUTO) 74.5 % (40.0-70.0); PLATELET COUNT (AUTO) 267 K/uL (130-430); RED BLOOD CELL COUNT(AUTO) 3.22 MIL/uL (4.2-6.2); RED CELL DISTRIBUTION WIDTH 18.8 % (9.0-15.0); WHITE BLOOD COUNT (AUTO) 6.6 K/uL (4.8-10.8)
[2019-02-23 22:54] LABS: ALBUMIN 2.3 g/dL (3.4-4.8); CALCIUM 9.2 mg/dL (8.4-11.0); CREATININE 2.6 mg/dL (0.55-1.30); POTASSIUM 3.7 mmol/L (3.5-5.1); TOTAL BILIRUBIN 0.5 mg/dL (0.0-1.0)
[2019-02-24 01:13] VITALS: BP_SYST 180
[2019-02-24] MEDS ORDERED: ONDANSETRON HCL 4 MG/2 ML VIAL IVP PRN (01:15)
[2019-02-24] MEDS ORDERED: amLODIPine BESYLATE 10 MG TABLET PO ONE ×2 (04:00→14:00)
[2019-02-24] MEDS: cloNIDine HCL 0.1 MG TABLET PO PRN (04:24)
[2019-02-24 08:00] VITALS: BP_SYST 156
[2019-02-24] MEDS: PANTOPRAZOLE SODIUM 40 MG/VIAL (PROTONIX) IVP SCH ×2 (08:34→20:07)
[2019-02-24] MEDS: amLODIPine BESYLATE 10 MG TABLET PO SCH (08:36)
[2019-02-24 12:43] VITALS: BP_SYST 144
[2019-02-24] MEDS ORDERED: PARoxetine HCL 20 MG TABLET PO ONE (14:00)
[2019-02-24] MEDS ORDERED: LevALBUTEROL HCL 1.25 MG/0.5 ML *CONC.* VIAL.NEB (XOPENEX CONC.) INH PRN (14:00)
[2019-02-24] MEDS: hydrALAZINE HCL 10 MG TABLET PO SCH ×2 (15:00→20:07)
[2019-02-24] MEDS ORDERED: buPROPion HCL 150 MG TABLET.SA PO SCH (15:00)
[2019-02-24] MEDS: LevALBUTEROL HCL 1.25 MG/0.5 ML *CONC.* VIAL.NEB (XOPENEX CONC.) INH SCH ×2 (15:00→23:00)
[2019-02-24 16:13] VITALS: BP_SYST 137
[2019-02-24 17:38] VITALS: BP_SYST 137
[2019-02-24 19:20] VITALS: BP_SYST 159
[2019-02-24] MEDS: MORPHINE 2 MG/ML INJ. SYRINGE IVP PRN (20:07)
[2019-02-24] MEDS: ATORVASTATIN 10 MG TABLET PO SCH (20:07)
[2019-02-24] MEDS: CARVEDILOL 25 MG TABLET (COREG) PO SCH (20:08)
[2019-02-24] MEDS: GABAPENTIN 100 MG CAPSULE PO SCH (20:08)
[2019-02-25 00:16] VITALS: BP_SYST 156
[2019-02-25 06:23] LABS: BASOPHILS # (AUTO) 0.2 K/uL (0.0-0.2); BASOPHILS % (AUTO) 2.9 % (0.0-2.0); EOSINOPHILS # (AUTO) 0.2 K/uL (0.0-0.4); EOSINOPHILS % (AUTO) 3.8 % (0.0-4.0); HEMATOCRIT 27.7 % (36-48); HEMOGLOBIN 8.9 g/dL (12.0-16.0); LYMPHOCYTES % (AUTO) 17.2 % (20.5-51.5); MEAN CORPUSCULAR HEMOGLOBIN 29 pg (27-31); MEAN CORPUSCULAR HGB CONC 32 % (32-36); MEAN CORPUSCULAR VOLUME 91 fL (79.0-98.0); MONOCYTES # (AUTO) 0.7 K/uL (0.0-1.0); MONOCYTES % (AUTO) 13.2 % (1.7-9.3); NEUTROPHILS # (AUTO) 3.5 K/uL (1.8-7.7); NEUTROPHILS % (AUTO) 62.9 % (40.0-70.0); PLATELET COUNT (AUTO) 289 K/uL (130-430); RED BLOOD CELL COUNT(AUTO) 3.06 MIL/uL (4.2-6.2); RED CELL DISTRIBUTION WIDTH 19.5 % (9.0-15.0); WHITE BLOOD COUNT (AUTO) 5.6 K/uL (4.8-10.8)
[2019-02-25 06:47] LABS: CALCIUM 8.6 mg/dL (8.4-11.0); CREATININE 3.64 mg/dL (0.55-1.30); POTASSIUM 4.3 mmol/L (3.5-5.1)
[2019-02-25] MEDS: LevALBUTEROL HCL 1.25 MG/0.5 ML *CONC.* VIAL.NEB (XOPENEX CONC.) INH SCH ×3 (07:00→23:00)
[2019-02-25 08:08] VITALS: BP_SYST 172
[2019-02-25] MEDS ORDERED: amLODIPine BESYLATE 10 MG TABLET PO SCH (09:00)
[2019-02-25] MEDS: hydrALAZINE HCL 10 MG TABLET PO SCH ×3 (09:21→21:14)
[2019-02-25] MEDS: GABAPENTIN 100 MG CAPSULE PO SCH ×2 (09:21→21:14)
[2019-02-25] MEDS: PANTOPRAZOLE SODIUM 40 MG/VIAL (PROTONIX) IVP SCH ×2 (09:21→21:15)
[2019-02-25] MEDS: amLODIPine BESYLATE 10 MG TABLET PO SCH (09:22)
[2019-02-25] MEDS: PARoxetine HCL 20 MG TABLET PO SCH (09:22)
[2019-02-25] MEDS: cloNIDine HCL 0.1 MG TABLET PO PRN (09:23)
[2019-02-25] MEDS: CARVEDILOL 25 MG TABLET (COREG) PO SCH ×2 (09:23→21:14)
[2019-02-25] MEDS: buPROPion HCL 150 MG TABLET.SA PO SCH ×2 (12:10→21:13)
[2019-02-25 14:40] VITALS: BP_SYST 153
[2019-02-25 17:20] VITALS: BP_SYST 128
[2019-02-25 19:25] VITALS: BP_SYST 145
[2019-02-25] MEDS: ATORVASTATIN 10 MG TABLET PO SCH (21:13)
[2019-02-25] MEDS: MEGESTROL ACETATE 400 MG/10 ML UDC PO SCH (21:13)
[2019-02-25] MEDS: MORPHINE 2 MG/ML INJ. SYRINGE IVP PRN (21:16)
[2019-02-26] VITALS: BP_SYST 135
[2019-02-26] MEDS: MORPHINE 2 MG/ML INJ. SYRINGE IVP PRN ×3 (02:43→14:39)
[2019-02-26] MEDS: LevALBUTEROL HCL 1.25 MG/0.5 ML *CONC.* VIAL.NEB (XOPENEX CONC.) INH SCH ×2 (07:00→15:00)
[2019-02-26 07:41] VITALS: BP_SYST 153
[2019-02-26 08:53] VITALS: BP_SYST 140
[2019-02-26] MEDS: PANTOPRAZOLE SODIUM 40 MG/VIAL (PROTONIX) IVP SCH (09:46)
[2019-02-26] MEDS: MEGESTROL ACETATE 400 MG/10 ML UDC PO SCH (09:46)
[2019-02-26] MEDS: buPROPion HCL 150 MG TABLET.SA PO SCH (09:47)
[2019-02-26] MEDS: amLODIPine BESYLATE 10 MG TABLET PO SCH (09:47)
[2019-02-26] MEDS: hydrALAZINE HCL 10 MG TABLET PO SCH ×2 (09:47→14:39)
[2019-02-26] MEDS: GABAPENTIN 100 MG CAPSULE PO SCH (09:47)
[2019-02-26] MEDS: CARVEDILOL 25 MG TABLET (COREG) PO SCH (09:48)
[2019-02-26] MEDS: PARoxetine HCL 20 MG TABLET PO SCH (09:48)
[2019-02-26 12:38] VITALS: BP_SYST 136
[2019-02-26] MEDS ORDERED: HYDROCORTISONE 1%, 28.35 GM TOPICAL CREAM TP PRN (12:45)
[2019-02-26 16:40] VITALS: BP_SYST 133
[2019-02-26 16:51] VITALS: BP_SYST 133
[2019-02-26] MEDS ORDERED: MEGE40TA PO (17:08)
[2019-02-26] MEDS ORDERED: ONDA4TAB5 PO (17:09)
[2019-02-26] MEDS ORDERED: CAT.1 PO (17:09)
[2019-02-26] MEDS ORDERED: IPRA4AER INH (17:10)
[2019-02-26] MEDS ORDERED: HYDR-4272 PO (17:10)
== END 2019-02-26 17:25 | disposition home or self-care (01) | DRG 190 ==
LOC: SED 20:53 → SMU 02-24 01:06
PROVIDERS: ADMIT Family Medicine; ATTEND Family Medicine
PROC: 5A1D70Z Performance of Urinary Filtration, Intermittent, Less than 6 Hours Per Day (ICD-10-PCS; principal; 2019-02-25)
DX: J44.1 Chronic obstructive pulmonary disease with (acute) exacerbation (principal); N18.6 End stage renal disease; E43 Unspecified severe protein-calorie malnutrition; I13.2 Hypertensive heart and chronic kidney disease with heart failure and with stage 5 chronic kidney disease, or end stage renal disease; Z68.1 Body mass index [BMI] 19.9 or less, adult; K21.9 Gastro-esophageal reflux disease without esophagitis; D64.9 Anemia, unspecified; E11.22 Type 2 diabetes mellitus with diabetic chronic kidney disease; E11.51 Type 2 diabetes mellitus with diabetic peripheral angiopathy without gangrene; F17.200 Nicotine dependence, unspecified, uncomplicated; J45.909 Unspecified asthma, uncomplicated; F32.9 Major depressive disorder, single episode, unspecified; K80.20 Calculus of gallbladder without cholecystitis without obstruction; I50.9 Heart failure, unspecified; Z99.2 Dependence on renal dialysis; Z88.0 Allergy status to penicillin; Z89.519 Acquired absence of unspecified leg below knee; Z88.2 Allergy status to sulfonamides; Z79.899 Other long term (current) drug therapy; Z90.710 Acquired absence of both cervix and uterus; Z89.511 Acquired absence of right leg below knee
CPT/HCPCS: 36415; 76700-TC; 80048; 80053; 83690-TC; 85025; 87081; 90935; 96374; 96375; 99285; C9113; J2001; J2270; J7030; J7612

== ENCOUNTER 2019-03-02 19:29 | Emergency (ER) | payer OTHER, MEDICAID ==
[~2019-03-02] VITALS: Ht 172.7 cm; Wt 49.9 kg
[~2019-03-02 19:29] MED LIST changes: +CAT.1 PO; +IPRA4AER INH; +MEGE40TA PO; +ONDA4TAB5 PO
[2019-03-02 19:41] VITALS: BP_SYST 128
[2019-03-02] MEDS ORDERED: MINERAL OIL 133 ML ENEMA RC ONE (20:45)
[2019-03-03] MEDS ORDERED: LORazepam 1 MG TABLET PO ONE (00:45)
[2019-03-03 01:00] VITALS: BP_SYST 128
== END 2019-03-03 01:00 | disposition home or self-care (01) ==
LOC: SED 19:29
DX: K59.00 Constipation, unspecified (principal); I12.9 Hypertensive chronic kidney disease with stage 1 through stage 4 chronic kidney disease, or unspecified chronic kidney disease; E11.22 Type 2 diabetes mellitus with diabetic chronic kidney disease; N18.9 Chronic kidney disease, unspecified; K21.9 Gastro-esophageal reflux disease without esophagitis; F17.210 Nicotine dependence, cigarettes, uncomplicated; J44.9 Chronic obstructive pulmonary disease, unspecified; Z86.79 Personal history of other diseases of the circulatory system; Z90.710 Acquired absence of both cervix and uterus; Z88.0 Allergy status to penicillin; Z88.2 Allergy status to sulfonamides; Z79.899 Other long term (current) drug therapy
CPT/HCPCS: 74018; 99284

== ENCOUNTER 2019-03-28 16:38 | Inpatient (IN) | payer OTHER, MEDICAID ==
[~2019-03-28] VITALS: Ht 167.6 cm; Wt 51.3 kg
[2019-03-28 16:41] VITALS: BP_SYST 142
[2019-03-28] MEDS ORDERED: DEXAMETHASONE SOD PHOSPHATE 10 MG/ML VIAL IVP ONE (17:00)
[2019-03-28 17:27] LABS: BASOPHILS # (AUTO) 0.1 K/uL (0.0-0.2); BASOPHILS % (AUTO) 1.4 % (0.0-2.0); CALCIUM 8.8 mg/dL (8.4-11.0); CREATININE 3.81 mg/dL (0.55-1.30); EOSINOPHILS % (AUTO) 0.6 % (0.0-4.0); HEMATOCRIT 38.5 % (36-48); HEMOGLOBIN 12.2 g/dL (12.0-16.0); LYMPHOCYTES # (AUTO) 0.5 K/uL (1.0-5.5); LYMPHOCYTES % (AUTO) 11.2 % (20.5-51.5); MEAN CORPUSCULAR HEMOGLOBIN 29 pg (27-31); MEAN CORPUSCULAR HGB CONC 32 % (32-36); MEAN CORPUSCULAR VOLUME 92 fL (79.0-98.0); MONOCYTES # (AUTO) 0.5 K/uL (0.0-1.0); MONOCYTES % (AUTO) 10.6 % (1.7-9.3); NEUTROPHILS # (AUTO) 3.3 K/uL (1.8-7.7); NEUTROPHILS % (AUTO) 76.2 % (40.0-70.0); PLATELET COUNT (AUTO) 216 K/uL (130-430); POTASSIUM 4.8 mmol/L (3.5-5.1); RED BLOOD CELL COUNT(AUTO) 4.17 MIL/uL (4.2-6.2); RED CELL DISTRIBUTION WIDTH 20.9 % (9.0-15.0); WHITE BLOOD COUNT (AUTO) 4.3 K/uL (4.8-10.8)
[2019-03-28 17:31] LABS: ALBUMIN 2.4 g/dL (3.4-4.8); TOTAL BILIRUBIN 0.7 mg/dL (0.0-1.0)
[2019-03-28 17:32] LABS: INR 1.1 (0.8-1.2); PROTHROMBIN TIME 11.5 SECS (9.5-12.5)
[2019-03-28] MEDS ORDERED: VANCOMYCIN HCL 1,000 MG in NS 250 ML IV ONE (18:15)
[2019-03-28] MEDS ORDERED: VANCOMYCIN HCL 1000 MG/VIAL IV ONE (18:50)
[2019-03-28 19:57] VITALS: BP_SYST 153
[2019-03-28] MEDS ORDERED: INSULIN REGULAR, HUMAN 100 UNITS/ML, 10 ML VIAL (humuLIN R) SUBCUT PRN (20:00)
[2019-03-28] MEDS ORDERED: LEVOFLOXACIN 500 MG/D5W 100 ML IV SCH (20:15)
[2019-03-28] MEDS ORDERED: cloNIDine HCL 0.1 MG TABLET PO PRN (22:15)
[2019-03-28] MEDS ORDERED: CARVEDILOL 25 MG TABLET (COREG) PO SCH (23:00)
[2019-03-28] MEDS ORDERED: hydrALAZINE HCL 10 MG TABLET PO SCH (23:00)
[2019-03-28] MEDS ORDERED: buPROPion HCL 150 MG TABLET.SA PO SCH (23:00)
[2019-03-28] MEDS ORDERED: PANTOPRAZOLE SODIUM 40 MG TAB PO SCH (23:00)
[2019-03-28] MEDS: IPRATROPIUM/ALBUTEROL SULFATE 3 ML AMPUL.NEB (DUONEB) INH PRN (23:56)
[2019-03-29] VITALS: BP_SYST 150
[2019-03-29 00:05] VITALS: BP_SYST 150
[2019-03-29] MEDS: ONDANSETRON 4 MG ODT TAB PO PRN ×2 (00:31→09:56)
[2019-03-29] MEDS: HYDROcodone/ACETAMIN 5-325 MG TAB (NORCO/ VICODIN) PO PRN ×2 (00:33→21:54)
[2019-03-29 07:29] LABS: EOSINOPHILS % (AUTO) 0.1 % (0.0-4.0); HEMATOCRIT 38.4 % (36-48); HEMOGLOBIN 12.2 g/dL (12.0-16.0); LYMPHOCYTES # (AUTO) 0.3 K/uL (1.0-5.5); MEAN CORPUSCULAR HEMOGLOBIN 29 pg (27-31); MEAN CORPUSCULAR HGB CONC 32 % (32-36); MEAN CORPUSCULAR VOLUME 92 fL (79.0-98.0); MONOCYTES # (AUTO) 0.1 K/uL (0.0-1.0); MONOCYTES % (AUTO) 6.5 % (1.7-9.3); NEUTROPHILS # (AUTO) 1.4 K/uL (1.8-7.7); PLATELET COUNT (AUTO) 214 K/uL (130-430); RED BLOOD CELL COUNT(AUTO) 4.17 MIL/uL (4.2-6.2); RED CELL DISTRIBUTION WIDTH 21.4 % (9.0-15.0)
[2019-03-29 07:38] LABS: CALCIUM 8.7 mg/dL (8.4-11.0); CREATININE 4.42 mg/dL (0.55-1.30); POTASSIUM 5.5 mmol/L (3.5-5.1)
[2019-03-29] MEDS: PANTOPRAZOLE SODIUM 40 MG TAB PO SCH ×2 (07:41→18:56)
[2019-03-29 08:05] VITALS: BP_SYST 166
[2019-03-29 08:41] LABS: WHITE BLOOD COUNT (AUTO) 1.8 K/uL (4.8-10.8)
[2019-03-29] MEDS: MEGESTROL ACETATE 40 MG TABLET PO SCH ×2 (09:44→21:00)
[2019-03-29] MEDS: GABAPENTIN 100 MG CAPSULE PO SCH ×2 (09:45→21:52)
[2019-03-29] MEDS: PARoxetine HCL 20 MG TABLET PO SCH (09:45)
[2019-03-29] MEDS: CALCIUM ACETATE 667 MG CAP PO SCH ×3 (09:45→18:55)
[2019-03-29] MEDS: CARVEDILOL 25 MG TABLET (COREG) PO SCH ×2 (09:45→18:55)
[2019-03-29] MEDS: hydrALAZINE HCL 10 MG TABLET PO SCH ×3 (09:46→21:53)
[2019-03-29] MEDS: amLODIPine BESYLATE 10 MG TABLET PO SCH (09:46)
[2019-03-29] MEDS: buPROPion HCL 150 MG TABLET.SA PO SCH ×3 (09:46→21:52)
[2019-03-29 10:33] LABS: BASOPHILS % (AUTO) 0.7 % (0.0-2.0); HEMATOCRIT 38.1 % (36-48); HEMOGLOBIN 12.1 g/dL (12.0-16.0); LYMPHOCYTES # (AUTO) 0.4 K/uL (1.0-5.5); MEAN CORPUSCULAR HEMOGLOBIN 29 pg (27-31); MEAN CORPUSCULAR HGB CONC 32 % (32-36); MEAN CORPUSCULAR VOLUME 92 fL (79.0-98.0); MONOCYTES # (AUTO) 0.4 K/uL (0.0-1.0); MONOCYTES % (AUTO) 16.8 % (1.7-9.3); NEUTROPHILS # (AUTO) 1.6 K/uL (1.8-7.7); NEUTROPHILS % (AUTO) 67.5 % (40.0-70.0); PLATELET COUNT (AUTO) 213 K/uL (130-430); RED BLOOD CELL COUNT(AUTO) 4.16 MIL/uL (4.2-6.2); RED CELL DISTRIBUTION WIDTH 20.9 % (9.0-15.0); WHITE BLOOD COUNT (AUTO) 2.4 K/uL (4.8-10.8)
[2019-03-29 11:16] LABS: NEUTROPHILS % (AUTO) 77.4 % (40.0-70.0)
[2019-03-29] MEDS ORDERED: VANCOMYCIN HCL 750 MG in NS 250 ML IV SCH (12:00)
[2019-03-29 12:43] VITALS: BP_SYST 141
[2019-03-29] MEDS ORDERED: SODIUM POLYSTYRENE SULFONATE 15 GM/60 ML UDBTL PO ONE (13:00)
[2019-03-29 16:31] VITALS: BP_SYST 135
[2019-03-29 20:55] VITALS: BP_SYST 126
[2019-03-29] MEDS: ATORVASTATIN 10 MG TABLET PO SCH (21:53)
[2019-03-30 00:49] VITALS: BP_SYST 138
[2019-03-30 05:45] LABS: BASOPHILS # (AUTO) 0.1 K/uL (0.0-0.2); BASOPHILS % (AUTO) 0.9 % (0.0-2.0); EOSINOPHILS % (AUTO) 0.3 % (0.0-4.0); HEMATOCRIT 35.1 % (36-48); HEMOGLOBIN 11.1 g/dL (12.0-16.0); LYMPHOCYTES # (AUTO) 0.7 K/uL (1.0-5.5); LYMPHOCYTES % (AUTO) 10.9 % (20.5-51.5); MEAN CORPUSCULAR HEMOGLOBIN 29 pg (27-31); MEAN CORPUSCULAR HGB CONC 32 % (32-36); MEAN CORPUSCULAR VOLUME 92 fL (79.0-98.0); MONOCYTES # (AUTO) 0.6 K/uL (0.0-1.0); MONOCYTES % (AUTO) 9.3 % (1.7-9.3); NEUTROPHILS # (AUTO) 5.3 K/uL (1.8-7.7); NEUTROPHILS % (AUTO) 78.6 % (40.0-70.0); PLATELET COUNT (AUTO) 214 K/uL (130-430); RED BLOOD CELL COUNT(AUTO) 3.79 MIL/uL (4.2-6.2); WHITE BLOOD COUNT (AUTO) 6.7 K/uL (4.8-10.8)
[2019-03-30 06:13] LABS: CALCIUM 8.3 mg/dL (8.4-11.0); CREATININE 5.23 mg/dL (0.55-1.30); POTASSIUM 4.6 mmol/L (3.5-5.1)
[2019-03-30] MEDS: PANTOPRAZOLE SODIUM 40 MG TAB PO SCH ×2 (06:22→17:17)
[2019-03-30] MEDS: LEVOFLOXACIN 500 MG/D5W 100 ML IV SCH (06:22)
[2019-03-30 08:00] VITALS: BP_SYST 133
[2019-03-30] MEDS: buPROPion HCL 150 MG TABLET.SA PO SCH ×3 (08:07→21:19)
[2019-03-30] MEDS: MEGESTROL ACETATE 40 MG TABLET PO SCH ×2 (08:07→21:19)
[2019-03-30] MEDS: PARoxetine HCL 20 MG TABLET PO SCH (08:07)
[2019-03-30] MEDS: GABAPENTIN 100 MG CAPSULE PO SCH ×2 (08:07→21:21)
[2019-03-30] MEDS: CALCIUM ACETATE 667 MG CAP PO SCH ×3 (08:07→17:17)
[2019-03-30] MEDS: CARVEDILOL 25 MG TABLET (COREG) PO SCH ×2 (08:30→17:17)
[2019-03-30] MEDS: hydrALAZINE HCL 10 MG TABLET PO SCH ×3 (09:00→21:19)
[2019-03-30 12:05] VITALS: BP_SYST 154
[2019-03-30] MEDS: amLODIPine BESYLATE 10 MG TABLET PO SCH (13:07)
[2019-03-30 16:30] VITALS: BP_SYST 148
[2019-03-30] MEDS ORDERED: MILK OF MAGNESIA 30 ML UDC PO PRN (18:15)
[2019-03-30 20:00] VITALS: BP_SYST 152
[2019-03-30] MEDS: IPRATROPIUM/ALBUTEROL SULFATE 3 ML AMPUL.NEB (DUONEB) INH PRN (20:32)
[2019-03-30] MEDS: ATORVASTATIN 10 MG TABLET PO SCH (21:20)
[2019-03-30] MEDS: TEMAZEPAM 15 MG CAPSULE PO SCH (21:20)
[2019-03-30] MEDS: SENNOSIDES 8.6 MG TABLET PO SCH (21:21)
[2019-03-30] MEDS: methylPREDNISolone SOD SUCC/PF 62.5 MG/ML VIAL IVP SCH (21:22)
[2019-03-31 00:53] VITALS: BP_SYST 186
[2019-03-31] MEDS: PANTOPRAZOLE SODIUM 40 MG TAB PO SCH ×2 (06:13→17:08)
[2019-03-31] MEDS: methylPREDNISolone SOD SUCC/PF 62.5 MG/ML VIAL IVP SCH ×3 (06:14→22:40)
[2019-03-31 08:00] VITALS: BP_SYST 157
[2019-03-31] MEDS: buPROPion HCL 150 MG TABLET.SA PO SCH ×3 (08:16→20:15)
[2019-03-31] MEDS: CARVEDILOL 25 MG TABLET (COREG) PO SCH ×2 (08:17→17:08)
[2019-03-31] MEDS: amLODIPine BESYLATE 10 MG TABLET PO SCH (08:17)
[2019-03-31] MEDS: PARoxetine HCL 20 MG TABLET PO SCH (08:17)
[2019-03-31] MEDS: CALCIUM ACETATE 667 MG CAP PO SCH ×3 (08:18→17:08)
[2019-03-31] MEDS: hydrALAZINE HCL 10 MG TABLET PO SCH ×3 (08:18→20:15)
[2019-03-31] MEDS: MEGESTROL ACETATE 40 MG TABLET PO SCH ×2 (08:18→20:14)
[2019-03-31] MEDS: GABAPENTIN 100 MG CAPSULE PO SCH ×2 (08:18→20:14)
[2019-03-31] MEDS ORDERED: VANCOMYCIN HCL 750 MG in NS 250 ML IV SCH (11:23)
[2019-03-31 12:45] VITALS: BP_SYST 149
[2019-03-31 16:27] VITALS: BP_SYST 145
[2019-03-31 20:00] VITALS: BP_SYST 127
[2019-03-31] MEDS: ATORVASTATIN 10 MG TABLET PO SCH (20:11)
[2019-03-31] MEDS: SENNOSIDES 8.6 MG TABLET PO SCH (20:12)
[2019-03-31] MEDS: ACETAMINOPHEN 325 MG TABLET PO PRN (20:13)
[2019-03-31] MEDS: IPRATROPIUM/ALBUTEROL SULFATE 3 ML AMPUL.NEB (DUONEB) INH PRN (20:24)
[2019-03-31] MEDS: TEMAZEPAM 15 MG CAPSULE PO SCH (22:41)
[2019-04-01 01:12] VITALS: BP_SYST 153
[2019-04-01] MEDS: methylPREDNISolone SOD SUCC/PF 62.5 MG/ML VIAL IVP SCH ×2 (06:08→13:51)
[2019-04-01] MEDS: PANTOPRAZOLE SODIUM 40 MG TAB PO SCH ×2 (06:09→17:32)
[2019-04-01] MEDS: LEVOFLOXACIN 500 MG/D5W 100 ML IV SCH (06:09)
[2019-04-01 07:45] VITALS: BP_SYST 145
[2019-04-01] MEDS: PARoxetine HCL 20 MG TABLET PO SCH (08:57)
[2019-04-01] MEDS: CALCIUM ACETATE 667 MG CAP PO SCH ×3 (08:57→18:30)
[2019-04-01] MEDS: buPROPion HCL 150 MG TABLET.SA PO SCH ×3 (08:57→20:49)
[2019-04-01] MEDS: MEGESTROL ACETATE 40 MG TABLET PO SCH ×2 (08:57→20:49)
[2019-04-01] MEDS: amLODIPine BESYLATE 10 MG TABLET PO SCH (08:58)
[2019-04-01] MEDS: GABAPENTIN 100 MG CAPSULE PO SCH ×2 (08:58→20:50)
[2019-04-01] MEDS: CARVEDILOL 25 MG TABLET (COREG) PO SCH ×2 (08:58→18:31)
[2019-04-01] MEDS: hydrALAZINE HCL 10 MG TABLET PO SCH ×3 (08:58→20:50)
[2019-04-01 12:00] VITALS: BP_SYST 138
[2019-04-01 15:47] VITALS: BP_SYST 139
[2019-04-01] MEDS ORDERED: VANCOMYCIN HCL 750 MG in NS 250 ML IV SCH (18:00)
[2019-04-01 18:56] VITALS: BP_SYST 148
[2019-04-01 20:00] VITALS: BP_SYST 146
[2019-04-01] MEDS: ATORVASTATIN 10 MG TABLET PO SCH (20:49)
[2019-04-01] MEDS: SENNOSIDES 8.6 MG TABLET PO SCH (20:50)
[2019-04-01] MEDS: TEMAZEPAM 15 MG CAPSULE PO SCH (20:50)
[2019-04-01] MEDS ORDERED: DOXYCYCLINE HYCLATE 100 MG CAPSULE PO SCH (21:00)
[2019-04-01] MEDS ORDERED: PREDNISONE 20 MG TABLET PO SCH (21:00)
[2019-04-01] MEDS: ACETAMINOPHEN 325 MG TABLET PO PRN (21:18)
[2019-04-02] MEDS ORDERED: LEVOFLOXACIN 250 MG/D5W 50 ML IV SCH (06:00)
== END 2019-04-01 22:15 | DRG 177 ==
LOC: SED 16:38 → SMU 19:23
PROVIDERS: ADMIT Internal Medicine; ATTEND Internal Medicine
DX: J15.6 Pneumonia due to other Gram-negative bacteria (principal); E43 Unspecified severe protein-calorie malnutrition; N18.6 End stage renal disease; J96.21 Acute and chronic respiratory failure with hypoxia; J44.1 Chronic obstructive pulmonary disease with (acute) exacerbation; I12.0 Hypertensive chronic kidney disease with stage 5 chronic kidney disease or end stage renal disease; J44.0 Chronic obstructive pulmonary disease with (acute) lower respiratory infection; E11.22 Type 2 diabetes mellitus with diabetic chronic kidney disease; D64.9 Anemia, unspecified; E11.51 Type 2 diabetes mellitus with diabetic peripheral angiopathy without gangrene; E87.5 Hyperkalemia; D72.819 Decreased white blood cell count, unspecified; Z88.0 Allergy status to penicillin; Z88.2 Allergy status to sulfonamides; Z79.899 Other long term (current) drug therapy; Z89.511 Acquired absence of right leg below knee; Z87.891 Personal history of nicotine dependence; Z99.2 Dependence on renal dialysis
CPT/HCPCS: 36415; 36600; 71045; 80048; 80053; 80202-TC; 82803-TC; 82810-TC; 82962; 83605; 84484; 85025; 85610-TC; 85730-TC; 87040-TC; 87081; 90935; 93005; 94640; 94760; 96365; 96368; 96375; 99285; J1100; J1956; J2930; J3370; J7030; J7050; J7512; J7620; Q0162